=== PATIENT | male | born 1990 | race Caucasian/White ===

== ENCOUNTER 2019-11-09 13:18 | Inpatient (IN) | payer BC, OTHER ==
[2019-11-09 13:55] VITALS: BMI 30.4
--- NOTE | 2019-11-09 14:20 | PDOC ---
History of Present Illness - General Chief Complaint: Cold Symptoms Stated Complaint: FEVER Time Seen by Provider: 11/09/19 13:47 - History of Present Illness Initial Comments: 29 M with no PMH walked to the ED after a low blood cell count result from [facility] urgent care. He presented to an urgent care with 1 week of flu like s ymptoms chill, fever, sweating, low appetite and 2 months of weight loss over 40 lbs. At the urgent care, he was given Tylenol for fever which subsided. Per diagnostic, EKG was done and negative. Lab reveal pancytopenia of low WBC 4.40, Hb of 8.3 , normacytic anemia Hct 24, normal MCV 91, RBC 2.64 million. Because of this, he was recommended to go to the ED. He denies SOB, chest pain, stomach pain, N/V/D, vision change, bleeding. He denies exposure to COVID, TB, recent travel history to endemic region. ROS: unremarkble except mentioned above in the HPI PMH: none PSH: adenoid removal Med: none Fam hx: none Allergy: none SS: alcohol use, denies drugs and smoking. Sexually active with no condom use. Past History - Medical History Allergies/Adverse Reactions: Allergies Allergy/AdvReac Type Severity Reaction Status Date / Time No Known Allergies Allergy Verified 10/05/11 16:19 COPD: No - Psycho-Social/Smoking History Smoking Status: No Smoking History: Never smoked Number of Cigarettes Smoked Daily: 0 - Substance Abuse Hx (Audit-C & DAST Scrn) How often the patient has a drink containing alcohol: Monthly or less Number of drinks the patient has on a typical day: 1 or 2 How often the patient has six or more drinks on one occasion: Less than monthly Score: In Men: 4 or > Positive; In Women: 3 or > Positive: 2 Screen Result (Pos requires Nsg. Audit-10AR): Negative In the last yr the pt used illegal drug/Rx for NonMed reason: No Score: Yes response is considered Positive: 0 Screen Result (Positive result requires Nsg. DAST-10): Negative *Physical Exam - Vital Signs Last Vital Signs Temp Pulse Resp BP Pulse Ox 100.3 F H 93 H 19 111/69 97 11/09/19 13:25 11/09/19 13:25 11/09/19 13:25 11/09/19 13:25 11/09/19 13:25 11/09/19 15:10 General appearrance: pale, nourished, laying comfortably on the chair. - Physical Exam HEENT: positive: EOMI, SHAD, Pale Conjunctivae, Other (no petechia on oral cavity) Neck: positive: Trachea midline, Supple Respiratory/Chest: positive: Lungs Clear, Normal Breath Sounds Cardiovascular: positive: Regular Rhythm, Regular Rate, S1, S2 Gastrointestinal/Abdominal: positive: Normal Bowel Sounds, Soft Extremity: positive: Normal Capillary Refill, Normal Range of Motion Integumentary: positive: Warm, Other (pale ) Neurologic: positive: merchandise coordinator II-XII NML intact, Fully Oriented ED Treatment Course - LABORATORY CBC & Chemistry Diagram: 11/09/19 15:00 11/09/19 15:00 Medical Decision Making - Medical Decision Making 11/09/19 15:47 29 M presented to the ED with abnormal lab from an urgent care. CBC, CMP were dr umanzor, revealed pancytopenia. WBC 4, plt 23. Peripheral blood smear is pending. Chest Xray result came back negative, no sign of pneumonia, or cavity lesion. Hem/onc was consulted. Dr. Teri Acosta. She recommended that Mr. Hoff to be admitted. She wanted to add on PT/PTT, fibrinogen to rule out DIC, Septic workup , HIV test. 11/09/19 17:01 11/09/19 18:56 Peripheral blood smear came back with blast cells, awaiting for confirmed read from a pathologist. Patient was admitted to Dr. Rashi Jaramillo. Discharge - Discharge Information Problems reviewed: Yes Clinical Impression/Diagnosis: Thrombocytopenia Anemia Qualifiers: Anemia type: unspecified type Qualified Code(s): D64.9 - Anemia, unspecified Leukopenia Qualifiers: Leukopenia type: unspecified Qualified Code(s): D72.819 - Decreased white blood cell count, unspecified Condition: Guarded - Admission Yes - Follow up/Referral - Patient Discharge Instructions - Post Discharge Activity
[2019-11-09 15:30] LABS: BASO % 0.4 % (0-2.0); EOS % 0.3 % (0-4.5); HEMATOCRIT 23.9 % (35.4-49); HEMOGLOBIN 7.8 GM/dL (11.7-16.9); LYMPH % 50.5 % (8-40); MCH 30.7 pg (25.7-33.7); MCHC 32.6 g/dl (32.0-35.9); MEAN CELL VOLUME 94.2 fl (80-96); MEAN PLT VOLUME 8.6 fl (7.5-11.1); MONO % 17.2 % (3.8-10.2); NEUT % 31.6 % (42.8-82.8); RBC 2.54 M/mm3 (4.00-5.60); RDW 17.4 % (11.9-15.9)
[2019-11-09 15:32] LABS: PLATELET COUNT 23 K/MM3 (134-434)
[2019-11-09 15:57] LABS: ALBUMIN 3.6 g/dl (3.4-5.0); BLOOD UREA NITROGEN 22.4 mg/dL (7-18); CALCIUM 8.6 mg/dL (8.5-10.1); CREATININE 1.3 mg/dL (0.55-1.3); TOT PROT 6.4 g/dl (6.4-8.2)
--- NOTE | 2019-11-09 16:06 | PDOC ---
Documentation entered by Lia Hall SCRIBE, acting as scribe for Lachelle Luong MD. Lachelel Luong MD: This documentation has been prepared by the Isabel hahn Xhesika, SCRIBE, under my direction and personally reviewed by me in its entirety. I confirm that the documentation accurately reflects all work, treatment, procedures, and medical decision making performed by me. Attending Attestation - Resident Resident Name: Josh Montano - ED Attending Attestation I have performed the following: I have examined & evaluated the patient, The case was reviewed & discussed with the resident, I agree w/resident's findings & plan, Exceptions are as noted - HPI HPI: 11/09/19 14:22 The patient is a 29 y/o M with no PMH who presents to the ED BIBA for 1 week of fever, chills, night sweats, lightheadedness, and decreased appetite. Pt states he was seen at Urgent Care this morning, had a EKG and lab work done which showed low WBC and platelets and was advised to come to the ED for further evaluation. Pt states he has endorsed a 16 pound weight loss over the past month. Pt denies any COVID exposures. The patient denies chest pain, shortness of breath. Denies cough, nausea, vomiting, diarrhea and constipation. Denies dysuria, frequency, urgency and hematuria. Allergies: NKDA - Physicial Exam PE: GENERAL: Awake, alert, and fully oriented, in no acute distress. Appears pale HEAD: No signs of trauma EYES: PERRLA, EOMI, sclera anicteric, conjunctiva pale ENT: Auricles normal inspection, hearing grossly normal, nares patent, oropharynx clear without exudates. Moist mucosa NECK: Normal ROM, supple, no lymphadenopathy, JVD, or masses LUNGS: Breath sounds equal, clear to auscultation bilaterally. No wheezes, and no crackles HEART: Regular rate and rhythm, normal S1 and S2, no murmurs, rubs or gallops ABDOMEN: Soft, nontender, normoactive bowel sounds. No guarding, no rebound. No masses EXTREMITIES: Normal range of motion, no edema. No clubbing or cyanosis. No cords, erythema, or tenderness. No palpable axillary nodes NEUROLOGICAL: Cranial nerves II through XII grossly intact. Normal speech, normal gait. Motor and sensation intact SKIN: Warm, diaphoretic, normal turgor, no rashes or lesions noted. - Medical Decision Making 11/09/19 16:03 Pt with anemia, leukopenia, and thrombocytopenia. Concerning for bone marrow suppression- poss malignancy vs aplastic anemia? Unclear at this time. No palpable lymph nodes on exam, no masses. Will contact heme/onc for guidance. Likely admission. Discharge - Discharge Information Problems reviewed: Yes - Discharge Information Clinical Impression/Diagnosis: Thrombocytopenia Anemia Qualifiers: Anemia type: unspecified type Qualified Code(s): D64.9 - Anemia, unspecified Leukopenia Qualifiers: Leukopenia type: unspecified Qualified Code(s): D72.819 - Decreased white blood cell count, unspecified
[2019-11-09 17:02] LABS: ANISOCYTOSIS 2+; MACROCYTOSIS 2+; PLATELET ESTIMATE DECREASED
--- NOTE | 2019-11-09 19:46 | PN ---
Teaching Attending Note Name of Resident: Gely Ramirez ATTENDING PHYSICIAN STATEMENT I saw and evaluated the patient. I reviewed the resident's note and discussed the case with the resident. I agree with the resident's findings and plan as documented. SUBJECTIVE: Patient is a 29 year old with no reported PMH walked to the ER after a low blood cell count result from [facility]. He presented to an Urgent care with 1 week of flu-like symptoms of chills, fever, sweating, low appetite and 2 months of unintended weight loss of over 40 lbs. At the urgent care, he was given Tylenol for fever which subsided. EKG was done and it was negative. Tests showed pancytopenia - WBC 4.40, Hb of 8.3, normocytic anemia Hct 24, normal MCV 91, RBC 2.64 million. Because of this, he was referred to the ER. He denies SOB, chest pain, abdominal pain, nausea, vomiting, diarrhea, vision change, dysuria, hematuria, rectal bleeding or melena. Denies alcohol, tobacco or illicit drug use. No sick contacts or recent travels. Patient has family history is DM. OBJECTIVE: Alert Vital Signs Period Temp Pulse Resp BP Sys/Price Pulse Ox Last 24 Hr 99 F-100.3 F 93 19 111/69 97 HEENT: No Jaundice, eye redness or discharge, PERRLA, EOMI. Normocephalic, atraumatic. External ears are normal and hearing is grossly intact. No nasal dis charge. Neck: Supple, nontender. No palpable adenopathy or thyromegaly. No JVD Chest: Good effort. Clear to auscultation and percussion. Heart: Regular. No S3, rub or murmur Abdomen: Not distended, soft, nontender and no HSM. No rebound or guarding. Normal bowel sounds. Ext: Peripheral pulses intact. No leg edema. Skin: Warm and dry. No petechiae, rash or ecchymosis. Neuro: Alert. Oriented x3. CN 2-12 grossly intact. Sensation grossly intact in all four extremities and DTR are symmetric. Psych: Appropriate mood and affect. Good insight. Abnormal Lab Results 11/09/19 11/09/19 11/09/19 15:00 15:00 18:30 RBC 2.54 L Hgb 7.8 L Hct 23.9 L RDW 17.4 H Plt Count 23 L* Absolute Neuts (auto) 1.3 L Neutrophils % 31.6 L Neutrophils % (Manual) 40.0 L Lymphocytes % 50.5 H Monocytes % 17.2 H Monocytes % (Manual) 16 H Blast Cells % (Manual) 1 H Nucleated RBC % 6 H Retic Count 3.11 H BUN 22.4 H Unsaturated IBC 182 L Ferritin 943.1 H AST 64 H ALT 62 H Current Medications Generic Name Dose Route Start Last Admin Trade Name Freq PRN Reason Stop Dose Admin Acetaminophen 650 mg 11/09/19 22:18 Tylenol - PO Q6H PRN Fever Or Pain ASSESSMENT AND PLAN: 1. Pancytopenia - Etiology unclear. Low corrected reticulocyte count suggests bone marrow suppression. Sepsis workup being done. Already seen by the Musculoskeletal Physician and her care plan is being implemented. No acute abnormality on CXR. Urinalysis pending. Will get HIV test and CT scan of abdomen/pelvis. Viral testing for COVID-19 ordered and patient placed on airborne, droplet and contact isolation. EKG shows NSR at 83/minute and QTc [address]-T wave changes. Will hydrate gently with IV NS and use Tylenol for pain/fever control. No indication for antibiotics at this time. 2. Obesity Counseled on the risks associated with obesity. Will provide mary ent all the necessary assistance, counseling and positive reinforcement to facilitate weight loss. Consult archeologist. 3. DVT prophylaxis - Lovenox 40 mg SQ q 24 hours. 4. Advance directives - Full code
--- NOTE | 2019-11-09 19:50 | CON.HO ---
Consult - text type - Consultation Consultation Note: 29 M with no PMH walked to the ED after a low blood cell count result from [facility] urgent care. He presents with 2 weeks of flu like symptoms fatigue, sweating, low appetite and 2 months of weight loss over 40 lbs. Noted fever this am only He denies SOB, chest pain, stomach pain, N/V/D, vision change, bleeding. He denies exposure to COVID, TB, recent travel history to endemic region. PMH: none PSH: adenoid removal Med: none Fam hx: none Allergy: none SS: alcohol use, denies drugs and smoking. Past History - Medical History Allergies/Adverse Reactions: Allergies Allergy/AdvReac Type Severity Reaction Status Date / Time No Known Allergies Allergy Verified 10/05/11 16:19 *Physical Exam - Vital Signs Last Vital Signs Temp Pulse Resp BP Pulse Ox 100.3 F H 93 H 19 111/69 97 11/09/19 13:25 11/09/19 13:25 11/09/19 13:25 11/09/19 13:25 11/09/19 13:25 11/09/19 15:10 General appearrance: pale, nourished, laying comfortably on the chair. P/E Cor: RSR, No murmurs, No gallops Lungs: Clear to P&A Abd: Soft, Normal bowel sounds, No organomegaly Ext:No significant edema A/P 29 M with no PMH walked to the ED after a low blood cell count result from [facility] urgent care. He presents with 2 weeks of flu like symptoms fatigue, sweating, low appetite and 2 months of weight loss over 40 lbs. Noted fever this am only He denies SOB, chest pain, stomach pain, N/V/D, vision change, bleeding. He denies exposure to COVID, TB, recent travel history to endemic region. Peripheral smear ---increased lymphocytes, atypical ? blasts 5%, decreased neutrophils R/O Acute leukemia R/o viral illness/sepsis Will need peripheral blood flowcytometry to r/o acute leukemia check PT/PTT/fibrinogen/LDH/uric acid/COVID and HIV serology IV hydration Transfuse monodonor platelets if bleeding or < 10-20,000 Transfuse PRBCs for Hgb <7 check cultures/CXR will follow closely
--- NOTE | 2019-11-09 20:45 | HP ---
CHIEF COMPLAINT:Lightheadedness and chills for 3 days PCP: unknown HISTORY OF PRESENT ILLNESS: Patient started feeling lightheaded and having chills on 2 days ago. Today he felt worse so he went to urgent care. Urgent care told him he had a fever and did blood work. Blood work showed low platelets so they advised him to come to the hospital. Upon further questioning, patient has been feeling more tired over the last 2 weeks. He has also been experiences night sweats in which he describes completely soaking the bed. He said his appetite has also been decreased and has had an unintentional weight loss of about 16 lbs over the last 8 weeks. ER course was notable for: (1)Fever (2)CXR (3)CBC, CMP Recent Travel: Denies PAST MEDICAL HISTORY: Denies PAST SURGICAL HISTORY: Denies Social History: Smoking:denies including vapping Alcohol:occasional 1-2 beers a day Drugs: denies Allergies No Known Allergies Allergy (Verified 10/05/11 16:19) HOME MEDICATIONS: Denies REVIEW OF SYSTEMS CONSTITUTIONAL: POSITIVE FOR: fever, chills, diaphoresis, malaise, loss of appetite, weight change, and night sweats HEENT: Absent: rhinorrhea, nasal congestion, throat pain, throat swelling, difficulty swallowing, mouth swelling, ear pain, eye pain, visual changes CARDIOVASCULAR: Absent: chest pain, syncope, palpitations, irregular heart rate, lightheadedness, peripheral edema RESPIRATORY: Absent: cough, shortness of breath, dyspnea with exertion, orthopnea, wheezing, stridor, hemoptysis GASTROINTESTINAL: Absent: abdominal pain, abdominal distension, nausea, vomiting, diarrhea, constipation, melena, hematochezia GENITOURINARY: Absent: dysuria, frequency, urgency, hesitancy, hematuria, flank pain, genital pain MUSCULOSKELETAL: Absent: myalgia, arthralgia, joint swelling, back pain, neck pain SKIN: Absent: rash, itching, pallor HEMATOLOGIC/IMMUNOLOGIC: Absent: easy bleeding, easy bruising, lymphadenopathy, frequent infections ENDOCRINE: Absent: unexplained weight gain, unexplained weight loss, heat intolerance, cold intolerance NEUROLOGIC: Absent: headache, focal weakness or paresthesias, dizziness, unsteady gait, seizure, mental status changes, bladder or bowel incontinence PSYCHIATRIC: Absent: anxiety, depression, suicidal or homicidal ideation, hallucinations. PHYSICAL EXAMINATION Vital Signs - 24 hr 11/09/19 11/09/19 13:25 15:24 Temperature 100.3 F H 99 F Pulse Rate 93 H Respiratory 19 Rate Blood Pressure 111/69 O2 Sat by Pulse 97 Oximetry (%) GENERAL: Awake, alert, and fully oriented, in no acute distress. HEAD: Normal with no signs of trauma. EYES: Pupils equal, round and reactive to light, extraocular movements intact. Sclera clear, conjunctiva pale EARS, NOSE, THROAT: oropharynx clear without exudates. NECK: Normal range of motion, supple without lymphadenopathy, JVD, or masses. LUNGS: Breath sounds equal, clear to auscultation bilaterally. No wheezes, and no crackles. No accessory muscle use. HEART: Regular rate and rhythm, normal S1 and S2 without murmur, rub or gallop. ABDOMEN: Soft, nontender, not distended, normoactive bowel sounds, no guarding, no rebound, no masses. No hepatomegaly or splenomegaly. MUSCULOSKELETAL: Normal range of motion at all joints. No tenderness to palpation of limbs. UPPER EXTREMITIES: 2+ pulses, warm, well-perfused. No cyanosis. No clubbing. No peripheral edema. LOWER EXTREMITIES: 2+ pulses, warm, well-perfused. No calf tenderness. No peripheral edema. NEUROLOGICAL: Normal speech. Normal gait. PSYCHIATRIC: Cooperative. Good eye contact. Appropriate mood and affect. SKIN: no rashes or lesions noted, normal capillary refill, feet cold Laboratory Results - last 24 hr 11/09/19 11/09/19 11/09/19 15:00 15:00 18:30 WBC 4.0 RBC 2.54 L Hgb 7.8 L Hct 23.9 L MCV 94.2 MCH 30.7 MCHC 32.6 RDW 17.4 H Plt Count 23 L* MPV 8.6 Absolute Neuts (auto) 1.3 L Neutrophils % 31.6 L Neutrophils % (Manual) 40.0 L Band Neutrophils % 3.0 Lymphocytes % 50.5 H Lymphocytes % (Manual) 39.0 Monocytes % 17.2 H Monocytes % (Manual) 16 H Eosinophils % 0.3 Basophils % 0.4 Blast Cells % (Manual) 1 H Nucleated RBC % 6 H Hypochromia 2+ Platelet Estimate Decreased Polychromasia 1+ Anisocytosis 2+ Macrocytosis 2+ Retic Count 3.11 H Sodium 137 Potassium 4.0 Chloride 106 Carbon Dioxide 22 Anion Gap 10 BUN 22.4 H Creatinine 1.3 Est GFR (CKD-EPI)AfAm 84.86 Est GFR (CKD-EPI)NonAf 73.22 Random Glucose 98 Calcium 8.6 Iron 71 TIBC 253 Iron Saturation 28 Unsaturated IBC 182 L Ferritin 943.1 H Total Bilirubin 1.0 AST 64 H ALT 62 H Alkaline Phosphatase 98 Total Protein 6.4 Albumin 3.6 CXR: looks WNL, awaiting final reading CT abdomen pelvis w/o contrast: splenomegaly - pending final read ASSESSMENT/PLAN: Patient is a 29 year male with no significant PMHx who presented to ED with fever and chills. Was found to have pancytopenia. Is being admitted to medical floors for further evaluation of pancytopenia. Pancytopenia - bone marrow suppression suspected >>> corrected reticulocyte count inappropriately low (1.85) r/o infectious causes covid testing pending HIV testing LDH UA + cultures Blood cultures Mg + Phos CRP heme/onc recs: peripheral smear ferritin, TIBC, transferritin PT/PTT, fibrinogen - r/o DIC CATHIE, RA factor If platelets fall < 20 transfuse If hbg falls < 7 transfuse Uric acid elevated - start allopurinol for prevention of tumor lysis syndrome 1 dose of Cefepime given prophylactically Pathology form must be filled out when patient gets to floor: Blood flow cytometry, FISH cytogentics CT abdomen/pelvis w/o contrast - showed splenomegaly Tylenol for fevers Watching very closely for any acute changes in his condition as patient could potentially deteriorate quickly Prophylaxis holding due to low platelets FEN IVF NS 75 ml/hr Regular diet as tolerated Visit type - Emergency Visit Emergency Visit: Yes ED Registration Date: 11/09/19 Care time: The patient presented to the Emergency Department on the above date and was hospitalized for further evaluation of their emergent condition. - New Patient This patient is new to me today: Yes Date on this admission: 11/17/19 - Critical Care Critical Care patient: No ATTENDING PHYSICIAN STATEMENT I saw and evaluated the patient. I reviewed the resident's note and discussed the case with the resident. I agree with the resident's findings and plan as documented. SUBJECTIVE: OBJECTIVE: ASSESSMENT AND PLAN:
[2019-11-09 21:07] LABS: BASO % 0.3 % (0-2.0); EOS % 0.2 % (0-4.5); HEMATOCRIT 25.3 % (35.4-49); HEMOGLOBIN 8.3 GM/dL (11.7-16.9); LYMPH % 55.5 % (8-40); MCH 31.2 pg (25.7-33.7); MCHC 32.8 g/dl (32.0-35.9); MEAN CELL VOLUME 95.1 fl (80-96); MEAN PLT VOLUME 7.8 fl (7.5-11.1); MONO % 23.2 % (3.8-10.2); NEUT % 20.8 % (42.8-82.8); PLATELET COUNT 39 K/MM3 (134-434); RBC 2.66 M/mm3 (4.00-5.60); RDW 17.4 % (11.9-15.9); WHITE BLOOD COUNT 7.3 K/mm3 (4.0-10.0)
[2019-11-09 21:59] LABS: ANISOCYTOSIS 2+; MACROCYTOSIS 2+; PLATELET ESTIMATE DECREASED
[2019-11-09] MEDS ORDERED: ACETAMINOPHEN 325 MG TABLET (FP) PO PRN (22:18)
[2019-11-10] MEDS: SODIUM CHLORIDE 1,000 ML IV SCH ×2 (00:50→03:27)
[2019-11-10] MEDS ORDERED: CEFEPIME 2 GM in DEXTROSE 5%-WATER - 50 ML IVPB ONE (01:30)
[2019-11-10] MEDS ORDERED: CEFEPIME 2 GM/100 ML BAG IVPB ONE (01:44)
[2019-11-10 03:38] LABS: URIC ACID 8.7 mg/dL (2.6-7.2)
[2019-11-10] MEDS ORDERED: ALLOPURINOL 100 MG TABLET (FP) PO SCH ×2 (03:59→10:00)
--- NOTE | 2019-11-10 04:08 | HP ---
CHIEF COMPLAINT: PCP: HISTORY OF PRESENT ILLNESS: 29 yo M no significant PMH presents to ED from urgent care for "critical blood counts". Pt states that for the past few weeks he has been feeling fatigued, chills, and has been having night sweats. pt denies any recent travel. 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 denies any rashes or recent illness ER course was notable for: (1)pancytopenia (2)heme/ onc consult with Dr. Williamson (3) Recent Travel: denies PAST MEDICAL HISTORY: denies PAST SURGICAL HISTORY:denies Social History: Smoking:denies Alcohol:social Drugs: denies Allergies No Known Allergies Allergy (Verified 10/05/11 16:19) HOME MEDICATIONS:none PHYSICAL EXAMINATION Vital Signs - 24 hr 11/09/19 11/09/19 11/09/19 13:25 15:24 21:31 Temperature 100.3 F H 99 F 98.6 F Pulse Rate 93 H Pulse Rate [ 98 H Left Radial] Respiratory 19 19 Rate Blood Pressure 111/69 Blood Pressure 110/68 [Right Arm] O2 Sat by Pulse 97 99 Oximetry (%) GENERAL: Awake, alert, and fully oriented, in no acute distress. HEAD: Normal with no signs of trauma. LUNGS: Breath sounds equal, clear to auscultation bilaterally. No wheezes, and no crackles. No accessory muscle use. HEART: Regular rate and rhythm, normal S1 and S2 without murmur, rub or gallop. ABDOMEN: Soft, nontender, not distended, normoactive bowel sounds, no guarding, no rebound MUSCULOSKELETAL:No CVA tenderness. UPPER EXTREMITIES: 2+ pulses, warm, well-perfused. No cyanosis. No clubbing. No peripheral edema. LOWER EXTREMITIES: 2+ pulses, warm, well-perfused. No calf tenderness. No peripheral edema. NEUROLOGICAL: Cranial nerves II-XII intact. Normal speech SKIN: Warm, dry, normal turgor, no rashes or lesions noted, normal capillary refill. Laboratory Last Values WBC 7.3 K/mm3 (4.0-10.0) 11/09/19 20:35 RBC 2.66 M/mm3 (4.00-5.60) L 11/09/19 20:35 Hgb 8.3 GM/dL (11.7-16.9) L 11/09/19 20:35 Hct 25.3 % (35.4-49) L 11/09/19 20:35 MCV 95.1 fl (80-96) 11/09/19 20:35 MCH 31.2 pg (25.7-33.7) 11/09/19 20:35 MCHC 32.8 g/dl (32.0-35.9) 11/09/19 20:35 RDW 17.4 % (11.9-15.9) H 11/09/19 20:35 Plt Count 39 K/MM3 (134-434) L D 11/09/19 20:35 MPV 7.8 fl (7.5-11.1) 11/09/19 20:35 Absolute Neuts (auto) 1.5 K/mm3 (1.5-8.0) 11/09/19 20:35 Neutrophils % 20.8 % (42.8-82.8) L D 11/09/19 20:35 Neutrophils % (Manual) 14.0 % (42.8-82.8) L D 11/09/19 20:35 Band Neutrophils % 2.0 % 11/09/19 20:35 Lymphocytes % 55.5 % (8-40) H 11/09/19 20:35 Lymphocytes % (Manual) 56.0 % (8-40) H D 11/09/19 20:35 Monocytes % 23.2 % (3.8-10.2) H 11/09/19 20:35 Monocytes % (Manual) 23 % (3.8-10.2) H 11/09/19 20:35 Eosinophils % 0.2 % (0-4.5) 11/09/19 20:35 Basophils % 0.3 % (0-2.0) 11/09/19 20:35 Blast Cells % (Manual) 5 % (0-0) H D 11/09/19 20:35 Nucleated RBC % 3 % (0-0) H 11/09/19 20:35 Hypochromia 2+ 11/09/19 20:35 Platelet Estimate Decreased 11/09/19 20:35 Polychromasia 1+ 11/09/19 20:35 Anisocytosis 2+ 11/09/19 20:35 Macrocytosis 2+ 11/09/19 20:35 Retic Count 3.11 % (0.5-1.5) H 11/09/19 18:30 PT with INR 13.90 SEC (9.7-13.0) H 11/10/19 04:16 INR 1.18 (0.83-1.09) H 11/10/19 04:16 PTT (Actin FS) 26.4 SECONDS (25.2-36.5) 11/10/19 04:16 Fibrinogen 307.0 mg/dL (238-498) 11/10/19 04:16 Sodium 137 mmol/L (136-145) 11/09/19 15:00 Potassium 4.0 mmol/L (3.5-5.1) 11/09/19 15:00 Chloride 106 mmol/L (98-107) 11/09/19 15:00 Carbon Dioxide 22 mmol/L (21-32) 11/09/19 15:00 Anion Gap 10 MMOL/L (8-16) 11/09/19 15:00 BUN 22.4 mg/dL (7-18) H 11/09/19 15:00 Creatinine 1.3 mg/dL (0.55-1.3) 11/09/19 15:00 Est GFR (CKD-EPI)AfAm 84.86 11/09/19 15:00 Est GFR (CKD-EPI)NonAf 73.22 11/09/19 15:00 Random Glucose 98 mg/dL (74-106) 11/09/19 15:00 Uric Acid 8.7 mg/dL (2.6-7.2) H 11/09/19 20:35 Calcium 8.6 mg/dL (8.5-10.1) 11/09/19 15:00 Iron 87 ug/dL (50-175) 11/09/19 20:35 TIBC 268 ug/dL (250-450) 11/09/19 20:35 Iron Saturation 32 % (17.5-39) 11/09/19 20:35 Unsaturated IBC 181 ug/dL (200-275) L 11/09/19 20:35 Ferritin 943.1 ng/ml (8-388) H 11/09/19 15:00 Total Bilirubin 1.0 mg/dL (0.2-1) 11/09/19 15:00 AST 64 U/L (15-37) H 11/09/19 15:00 ALT 62 U/L (13-61) H 11/09/19 15:00 Alkaline Phosphatase 98 U/L (45-117) 11/09/19 15:00 LD Total 1247 U/L (87-246) H 11/09/19 15:00 C-Reactive Protein 7.9 MG/DL (0.00-0.3) H 11/09/19 20:35 Total Protein 6.4 g/dl (6.4-8.2) 11/09/19 15:00 Albumin 3.6 g/dl (3.4-5.0) 11/09/19 15:00 Vitamin B12 725 pg/ml (193-986) 11/09/19 15:00 Serum Folate 17 ng/mL (3.1-17.5) 11/09/19 15:00 Blood Type B POSITIVE 11/09/19 20:35 Antibody Screen Negative 11/09/19 20:35 Direct Antiglob Test Negative (NEGATIVE) 11/09/19 20:35 ASSESSMENT/PLAN: 29 yo M no PMH presented with night sweats, chills, wt loss, fever admitted for pancytopenia pancytopenia - continue to monitor ; rpt cbc with dif - no signs of acute bleed on physical exam . CT abdomen/pelvis to r/o orhter bleeding ( CT shows nonspecific splenomegaly ) - Dr. Williamson consulted. workup ordered - will prophylactically cover with cefepime -will check PT/PTT/fibrinogen/LDH/uric acid/COVID and HIV serology -IV hydration -Peripheral Flow Cytometry/FISH (can only be sent on Tuesday11/12/19). -Mild elevation in LFTs, will monitor. -ID consulted. -Transfuse monodonor platelets if bleeding or < 10-20,000 -Transfuse PRBCs for Hgb <7 Visit type - Emergency Visit Emergency Visit: Yes ED Registration Date: 11/09/19 Care time: The patient presented to the Emergency Department on the above date and was hospitalized for further evaluation of their emergent condition. - New Patient This patient is new to me today: Yes - Critical Care Critical Care patient: No ATTENDING PHYSICIAN STATEMENT I saw and evaluated the patient. I reviewed the resident's note and discussed the case with the resident. I agree with the resident's findings and plan as documented. SUBJECTIVE: OBJECTIVE: ASSESSMENT AND PLAN:
[2019-11-10 04:50] LABS: INR 1.18 (0.83-1.09); PROTHROMBIN TIME (PATIENT) 13.9 SEC (9.7-13.0)
[2019-11-10 04:53] LABS: ACTIVATED PTT 26.4 SECONDS (25.2-36.5)
[2019-11-10 06:00] LABS: PH,URINE 6.5 (5.0-8.0); URINE APPEARANCE Clear; URINE BILIRUBIN Negative (NEGATIVE); URINE COLOR Yellow; URINE GLUCOSE (UA) Negative (NEGATIVE); URINE KETONE Negative (NEGATIVE); URINE LEUK ESTERASE Negative (NEGATIVE); URINE NITRITE Negative (NEGATIVE); URINE PROTEIN Negative (NEGATIVE); URINE UROBILINOGEN >=8.0 E.U./dl mg/dL (0.2-1.0)
[2019-11-10 07:38] LABS: BASO % 0.4 % (0-2.0); EOS % 0.3 % (0-4.5); HEMATOCRIT 22.7 % (35.4-49); HEMOGLOBIN 7.4 GM/dL (11.7-16.9); LYMPH % 62.8 % (8-40); MCH 30.5 pg (25.7-33.7); MCHC 32.7 g/dl (32.0-35.9); MEAN CELL VOLUME 93.3 fl (80-96); MEAN PLT VOLUME 8.3 fl (7.5-11.1); MONO % 12.9 % (3.8-10.2); NEUT % 23.6 % (42.8-82.8); RBC 2.43 M/mm3 (4.00-5.60); RDW 17.6 % (11.9-15.9); WHITE BLOOD COUNT 4.6 K/mm3 (4.0-10.0)
[2019-11-10 07:43] LABS: INR 1.17 (0.83-1.09); PROTHROMBIN TIME (PATIENT) 13.8 SEC (9.7-13.0)
[2019-11-10 07:45] LABS: ACTIVATED PTT 27.7 SECONDS (25.2-36.5)
[2019-11-10 07:48] LABS: PLATELET COUNT 21 K/MM3 (134-434)
[2019-11-10 08:04] LABS: ALBUMIN 3.5 g/dl (3.4-5.0); BLOOD UREA NITROGEN 20.5 mg/dL (7-18); CALCIUM 8.5 mg/dL (8.5-10.1); CREATININE 1.3 mg/dL (0.55-1.3); MAGNESIUM 2.5 mg/dL (1.8-2.4); PHOSPHOROUS 4.4 mg/dL (2.5-4.9); POTASSIUM 4.1 mmol/L (3.5-5.1); URIC ACID 8.2 mg/dL (2.6-7.2)
[2019-11-10 08:14] LABS: TOT PROT 6.4 g/dl (6.4-8.2)
[2019-11-10] MEDS: CEFTRIAXONE 2 GM in DEXTROSE 5%-WATER - 50 ML IVPB SCH (09:23)
[2019-11-10] MEDS: ALLOPURINOL 300 MG TABLET (FP) PO SCH (09:23)
[2019-11-10] MEDS ORDERED: DOXYCYCLINE HYCLATE 100 MG VIAL ONE ×2 (09:35→21:47)
[2019-11-10] MEDS: DOXYCYCLINE INJECTION 100 MG in DEXTROSE 5%-WATER 100 ML IVPB SCH ×2 (09:43→21:56)
--- NOTE | 2019-11-10 11:36 | PN.HO ---
Progress Note (short form) - Note Progress Note: PAtient seen and examined Feels improved Last Vital Signs Temp Pulse Resp BP Pulse Ox 98.2 F 82 17 112/72 98 11/10/19 07:54 11/10/19 07:54 11/10/19 07:54 11/10/19 07:54 11/10/19 07:54 Cor: RSR, No murmurs, No gallops Lungs: Clear to P&A Abd: Soft, Normal bowel sounds, No organomegaly Ext:No significant edema Skin: No rashes, Integument intact Labs/Meds reviewed A/P 29 M with no PMH walked to the ED after a low blood cell count result from [facility] urgent care. He presents with 2 weeks of flu like symptoms fatigue, sweating, low appetite and 2 months of weight loss over 40 lbs. Noted fever this am only He denies SOB, chest pain, stomach pain, N/V/D, vision change, bleeding. He denies exposure to COVID, TB, recent travel history to endemic region. Peripheral smear ---increased lymphocytes, atypical ? blasts 5%, decreased neutrophils R/O Acute leukemia R/o viral illness/sepsis Peripheral smear, clinical picture suggestive of acute leukemia check peripheral blood flowcytometry PT/PTT/fibrinogen--nl LDH -1200s/uric acid 8.1 IV hydration start allopurinol Transfuse monodonor platelets if bleeding or < 10-20,000 Transfuse PRBCs for Hgb <7 check cultures/CXR Empiric antibiotics discussed with patient and his mother
[2019-11-10 12:59] LABS: ANISOCYTOSIS 1+; MACROCYTOSIS 0; OVALOCYTE 1+; PLATELET ESTIMATE DECREASED
--- NOTE | 2019-11-10 13:34 | PN ---
Teaching Attending Note Name of Resident: Gomez Atkinson ATTENDING PHYSICIAN STATEMENT I saw and evaluated the patient. I reviewed the resident's note and discussed the case with the resident. I agree with the resident's findings and plan as documented. SUBJECTIVE: Feeling well, no complaints. No further fevers. No cough/sputum/hemoptysis. No abdominal pain/dysuria/nausea/vomiting/diarrhea. No rash. No ecchymoses. OBJECTIVE: Tmax 100.3. Hemodynamically Stable. Last Vital Signs Temp Pulse Resp BP Pulse Ox 98.2 F 82 17 112/72 98 11/10/19 07:54 11/10/19 07:54 11/10/19 07:54 11/10/19 07:54 11/10/19 07:54 HEENT - Atraumatic, Normocephalic. Heart - S1, S2, RRR Lungs - clear to auscultation Abdomen - Soft, non-tender. Bowel Sounds normal. Extremities - no edema, no calf tenderness Neuro - AAO x 3. Tone/Power normal all extremities. Laboratory Results - last 24 hr 11/09/19 11/09/19 11/09/19 15:00 15:00 18:30 WBC 4.0 RBC 2.54 L Hgb 7.8 L Hct 23.9 L MCV 94.2 MCH 30.7 MCHC 32.6 RDW 17.4 H Plt Count 23 L* MPV 8.6 Absolute Neuts (auto) 1.3 L Neutrophils % 31.6 L Neutrophils % (Manual) 40.0 L Band Neutrophils % 3.0 Lymphocytes % 50.5 H Lymphocytes % (Manual) 39.0 Monocytes % 17.2 H Monocytes % (Manual) 16 H Eosinophils % 0.3 Eosinophils % (Manual) Basophils % 0.4 Basophils % (Manual) Myelocytes % (Man) Promyelocytes % (Man) Blast Cells % (Manual) 1 H Nucleated RBC % 6 H Metamyelocytes Hypochromia 2+ Platelet Estimate Decreased Polychromasia 1+ Poikilocytosis Basophilic Stippling Anisocytosis 2+ Microcytosis Macrocytosis 2+ Spherocytes Ovalocytes Retic Count 3.11 H PT with INR INR PTT (Actin FS) Fibrinogen Sodium 137 Potassium 4.0 Chloride 106 Carbon Dioxide 22 Anion Gap 10 BUN 22.4 H Creatinine 1.3 Est GFR (CKD-EPI)AfAm 84.86 Est GFR (CKD-EPI)NonAf 73.22 Random Glucose 98 Uric Acid Calcium 8.6 Phosphorus Magnesium Iron 71 TIBC 253 Iron Saturation 28 Unsaturated IBC 182 L Ferritin 943.1 H Total Bilirubin 1.0 AST 64 H ALT 62 H Alkaline Phosphatase 98 LD Total 1247 H C-Reactive Protein Total Protein 6.4 Albumin 3.6 Vitamin B12 725 Serum Folate 17 TSH Free T4 Urine Color Urine Appearance Urine pH Ur Specific [place] Urine Protein Urine Glucose (UA) Urine Ketones Urine Blood Urine Nitrite Urine Bilirubin Urine Urobilinogen Ur Leukocyte Esterase Blood Type Antibody Screen Direct Antiglob Test 11/09/19 11/09/19 11/09/19 20:35 20:35 20:35 WBC 7.3 RBC 2.66 L Hgb 8.3 L Hct 25.3 L MCV 95.1 MCH 31.2 MCHC 32.8 RDW 17.4 H Plt Count 39 L D MPV 7.8 Absolute Neuts (auto) 1.5 Neutrophils % 20.8 L D Neutrophils % (Manual) 14.0 L D Band Neutrophils % 2.0 Lymphocytes % 55.5 H Lymphocytes % (Manual) 56.0 H D Monocytes % 23.2 H Monocytes % (Manual) 23 H Eosinophils % 0.2 Eosinophils % (Manual) Basophils % 0.3 Basophils % (Manual) Myelocytes % (Man) Promyelocytes % (Man) Blast Cells % (Manual) 5 H D Nucleated RBC % 3 H Metamyelocytes Hypochromia 2+ Platelet Estimate Decreased Polychromasia 1+ Poikilocytosis Basophilic Stippling Anisocytosis 2+ Microcytosis Macrocytosis 2+ Spherocytes Ovalocytes Retic Count PT with INR INR PTT (Actin FS) Fibrinogen Sodium Potassium Chloride Carbon Dioxide Anion Gap BUN Creatinine Est GFR (CKD-EPI)AfAm Est GFR (CKD-EPI)NonAf Random Glucose Uric Acid 8.7 H Calcium Phosphorus Magnesium Iron 87 TIBC 268 Iron Saturation 32 Unsaturated IBC 181 L Ferritin Total Bilirubin AST ALT Alkaline Phosphatase LD Total C-Reactive Protein 7.9 H Total Protein Albumin Vitamin B12 Serum Folate TSH Free T4 Urine Color Urine Appearance Urine pH Ur Specific [place] Urine Protein Urine Glucose (UA) Urine Ketones Urine Blood Urine Nitrite Urine Bilirubin Urine Urobilinogen Ur Leukocyte Esterase Blood Type Antibody Screen Direct Antiglob Test Negative 07/03/20 07/04/20 07/04/20 20:35 04:16 04:16 WBC RBC Hgb Hct MCV MCH MCHC RDW Plt Count MPV Absolute Neuts (auto) Neutrophils % Neutrophils % (Manual) Band Neutrophils % Lymphocytes % Lymphocytes % (Manual) Monocytes % Monocytes % (Manual) Eosinophils % Eosinophils % (Manual) Basophils % Basophils % (Manual) Myelocytes % (Man) Promyelocytes % (Man) Blast Cells % (Manual) Nucleated RBC % Metamyelocytes Hypochromia Platelet Estimate Polychromasia Poikilocytosis Basophilic Stippling Anisocytosis Microcytosis Macrocytosis Spherocytes Ovalocytes Retic Count PT with INR 13.90 H INR 1.18 H PTT (Actin FS) 26.4 Fibrinogen 307.0 Sodium Potassium Chloride Carbon Dioxide Anion Gap BUN Creatinine Est GFR (CKD-EPI)AfAm Est GFR (CKD-EPI)NonAf Random Glucose Uric Acid Calcium Phosphorus Magnesium Iron TIBC Iron Saturation Unsaturated IBC Ferritin Total Bilirubin AST ALT Alkaline Phosphatase LD Total C-Reactive Protein Total Protein Albumin Vitamin B12 Serum Folate TSH Free T4 Urine Color Urine Appearance Urine pH Ur Specific [place] Urine Protein Urine Glucose (UA) Urine Ketones Urine Blood Urine Nitrite Urine Bilirubin Urine Urobilinogen Ur Leukocyte Esterase Blood Type B POSITIVE Antibody Screen Negative Direct Antiglob Test 11/10/19 11/10/19 11/10/19 04:16 06:30 06:30 WBC RBC Hgb Hct MCV MCH MCHC RDW Plt Count MPV Absolute Neuts (auto) Neutrophils % Neutrophils % (Manual) Band Neutrophils % Lymphocytes % Lymphocytes % (Manual) Monocytes % Monocytes % (Manual) Eosinophils % Eosinophils % (Manual) Basophils % Basophils % (Manual) Myelocytes % (Man) Promyelocytes % (Man) Blast Cells % (Manual) Nucleated RBC % Metamyelocytes Hypochromia Platelet Estimate Polychromasia Poikilocytosis Basophilic Stippling Anisocytosis Microcytosis Macrocytosis Spherocytes Ovalocytes Retic Count PT with INR 13.80 H INR 1.17 H PTT (Actin FS) 27.7 Fibrinogen 323.0 Sodium Potassium Chloride Carbon Dioxide Anion Gap BUN Creatinine Est GFR (CKD-EPI)AfAm Est GFR (CKD-EPI)NonAf Random Glucose Uric Acid Calcium Phosphorus Magnesium Iron TIBC Iron Saturation Unsaturated IBC Ferritin Total Bilirubin AST ALT Alkaline Phosphatase LD Total C-Reactive Protein Total Protein Albumin Vitamin B12 Serum Folate TSH Free T4 Urine Color Yellow Urine Appearance Clear Urine pH 6.5 Ur Specific [place] 1.025 Urine Protein Negative Urine Glucose (UA) Negative Urine Ketones Negative Urine Blood Negative Urine Nitrite Negative Urine Bilirubin Negative Urine Urobilinogen >=8.0 e.u./dl Ur Leukocyte Esterase Negative Blood Type Antibody Screen Direct Antiglob Test 11/10/19 11/10/19 11/10/19 06:30 06:30 06:30 WBC 4.6 RBC 2.43 L Hgb 7.4 L Hct 22.7 L MCV 93.3 MCH 30.5 MCHC 32.7 RDW 17.6 H Plt Count 21 L* D MPV 8.3 Absolute Neuts (auto) 1.1 L Neutrophils % 23.6 L Neutrophils % (Manual) 19.0 L D Band Neutrophils % 5.0 Lymphocytes % 62.8 H Lymphocytes % (Manual) 58.0 H Monocytes % 12.9 H Monocytes % (Manual) 1 L D Eosinophils % 0.3 Eosinophils % (Manual) 0.0 Basophils % 0.4 Basophils % (Manual) 0.0 Myelocytes % (Man) 4 H Promyelocytes % (Man) 0 Blast Cells % (Manual) 0 D Nucleated RBC % 3 H Metamyelocytes 3 H Hypochromia 0 Platelet Estimate Decreased Polychromasia 1+ Poikilocytosis 1+ Basophilic Stippling 1+ Anisocytosis 1+ Microcytosis 1+ Macrocytosis 0 Spherocytes 1+ Ovalocytes 1+ Retic Count PT with INR INR PTT (Actin FS) Fibrinogen Sodium 139 Potassium 4.1 Chloride 105 Carbon Dioxide 25 Anion Gap 9 BUN 20.5 H Creatinine 1.3 Est GFR (CKD-EPI)AfAm 84.86 Est GFR (CKD-EPI)NonAf 73.22 Random Glucose 92 Uric Acid 8.2 H Calcium 8.5 Phosphorus 4.4 Magnesium 2.5 H Iron TIBC Iron Saturation Unsaturated IBC Ferritin Total Bilirubin 1.0 AST 46 H ALT 60 Alkaline Phosphatase 97 LD Total C-Reactive Protein Total Protein 6.4 Albumin 3.5 Vitamin B12 Serum Folate TSH 0.72 Free T4 0.92 Urine Color Urine Appearance Urine pH Ur Specific [place] Urine Protein Urine Glucose (UA) Urine Ketones Urine Blood Urine Nitrite Urine Bilirubin Urine Urobilinogen Ur Leukocyte Esterase Blood Type Antibody Screen Direct Antiglob Test Current Medications Generic Name Dose Route Start Last Admin Trade Name Freq PRN Reason Stop Dose Admin Acetaminophen 650 mg 11/09/19 22:18 Tylenol - PO Q6H PRN Fever Or Pain Allopurinol 300 mg 11/10/19 08:30 11/10/19 09:23 Zyloprim - PO 300 mg DAILY DORA Administration Sodium Chloride 1,000 mls @ 75 mls/hr 11/10/19 00:45 11/10/19 00:50 Normal Saline - IV 75 mls/hr ASDIR DORA Administration Sodium Chloride 1,000 mls @ 75 mls/hr 11/10/19 02:00 11/10/19 03:27 Normal Saline - IV Not Given ASDIR DORA Doxycycline Hyclate 100 mg/ 100 mls @ 100 mls/hr 11/10/19 10:00 11/10/19 09:43 Dextrose IVPB 100 mls/hr BID DORA Administration Ceftriaxone Sodium 2 gm/ 50 mls @ 100 mls/hr 11/10/19 10:00 11/10/19 09:23 Dextrose IVPB 100 mls/hr DAILY DORA Administration ASSESSMENT AND PLAN: 29 year old male with no significant PMH presents with 2 week history of increasing lethargy, night sweats, chills, weight loss, fevers, found to have Anemia and Thrombocytopenia. 1. Pancytopenia - Neutropenia/Anemia/Thrombocytopenia ?Infective etiology vs underlying malignancy CXR - no acute findings CT A/P - Splenomegaly LDH/Uric Acid elevated - Peripheral smear, Peripheral Flow Cytometry/FISH (can only be sent on Tuesday11/12/19). Allopurinol started for elevated Uric Acid. Mild elevation in LFTs, will monitor. Tick-Borne illness work-up sent despite negative history of tick exposure. HIV pending. May need further viral screen. ID consulted. Empiric Ceftriaxone/Doxycycline. If fever > 100.4 or if absolute Neutrophils drop below 1.0, consider change to Cefepime. Discussed with Dr. Williamson - she will advise re: need for transfer to [facility].
--- NOTE | 2019-11-10 15:55 | PN ---
Physical Exam: SUBJECTIVE: Patient seen and examined at bedside in ED. Resting in bed, no complaints. OBJECTIVE: Vital Signs Period Temp Pulse Resp BP Sys/Price Pulse Ox Last 24 Hr 98.2 F-98.8 F 82-98 14-19 108-121/68-81 98-99 GENERAL: NAD HEAD: AT/NC EYES: No conjunctival pallor. EOMI, Sclera Clear NECK: Trachea midline, full range of motion, supple. LUNGS: Clear HEART: RRR no MRG S1S2 ABDOMEN: Soft NDNT EXTREMITIES: 2+ pulses, warm, well-perfused, no edema. NEUROLOGICAL: Cranial nerves II through XII grossly intact. PSYCH: Normal mood, normal affect. SKIN: Warm, dry Laboratory Results - last 24 hr 11/09/19 11/09/19 11/09/19 15:00 15:00 18:30 WBC RBC Hgb Hct MCV MCH MCHC RDW Plt Count MPV Absolute Neuts (auto) Neutrophils % Neutrophils % (Manual) 40.0 L Band Neutrophils % 3.0 Lymphocytes % Lymphocytes % (Manual) 39.0 Monocytes % Monocytes % (Manual) 16 H Eosinophils % Eosinophils % (Manual) Basophils % Basophils % (Manual) Myelocytes % (Man) Promyelocytes % (Man) Blast Cells % (Manual) 1 H Nucleated RBC % 6 H Metamyelocytes Hypochromia 2+ Platelet Estimate Decreased Polychromasia 1+ Poikilocytosis Basophilic Stippling Anisocytosis 2+ Microcytosis Macrocytosis 2+ Spherocytes Ovalocytes Retic Count 3.11 H PT with INR INR PTT (Actin FS) Fibrinogen Sodium 137 Potassium 4.0 Chloride 106 Carbon Dioxide 22 Anion Gap 10 BUN 22.4 H Creatinine 1.3 Est GFR (CKD-EPI)AfAm 84.86 Est GFR (CKD-EPI)NonAf 73.22 Random Glucose 98 Uric Acid Calcium 8.6 Phosphorus Magnesium Iron 71 TIBC 253 Iron Saturation 28 Unsaturated IBC 182 L Ferritin 943.1 H Total Bilirubin 1.0 AST 64 H ALT 62 H Alkaline Phosphatase 98 LD Total 1247 H C-Reactive Protein Total Protein 6.4 Albumin 3.6 Vitamin B12 725 Serum Folate 17 TSH Free T4 Urine Color Urine Appearance Urine pH Ur Specific [place] Urine Protein Urine Glucose (UA) Urine Ketones Urine Blood Urine Nitrite Urine Bilirubin Urine Urobilinogen Ur Leukocyte Esterase Blood Type Antibody Screen Direct Antiglob Test 11/09/19 11/09/19 11/09/19 20:35 20:35 20:35 WBC 7.3 RBC 2.66 L Hgb 8.3 L Hct 25.3 L MCV 95.1 MCH 31.2 MCHC 32.8 RDW 17.4 H Plt Count 39 L D MPV 7.8 Absolute Neuts (auto) 1.5 Neutrophils % 20.8 L D Neutrophils % (Manual) 14.0 L D Band Neutrophils % 2.0 Lymphocytes % 55.5 H Lymphocytes % (Manual) 56.0 H D Monocytes % 23.2 H Monocytes % (Manual) 23 H Eosinophils % 0.2 Eosinophils % (Manual) Basophils % 0.3 Basophils % (Manual) Myelocytes % (Man) Promyelocytes % (Man) Blast Cells % (Manual) 5 H D Nucleated RBC % 3 H Metamyelocytes Hypochromia 2+ Platelet Estimate Decreased Polychromasia 1+ Poikilocytosis Basophilic Stippling Anisocytosis 2+ Microcytosis Macrocytosis 2+ Spherocytes Ovalocytes Retic Count PT with INR INR PTT (Actin FS) Fibrinogen Sodium Potassium Chloride Carbon Dioxide Anion Gap BUN Creatinine Est GFR (CKD-EPI)AfAm Est GFR (CKD-EPI)NonAf Random Glucose Uric Acid 8.7 H Calcium Phosphorus Magnesium Iron 87 TIBC 268 Iron Saturation 32 Unsaturated IBC 181 L Ferritin Total Bilirubin AST ALT Alkaline Phosphatase LD Total C-Reactive Protein 7.9 H Total Protein Albumin Vitamin B12 Serum Folate TSH Free T4 Urine Color Urine Appearance Urine pH Ur Specific [place] Urine Protein Urine Glucose (UA) Urine Ketones Urine Blood Urine Nitrite Urine Bilirubin Urine Urobilinogen Ur Leukocyte Esterase Blood Type Antibody Screen Direct Antiglob Test Negative 11/09/19 11/10/19 11/10/19 20:35 04:16 04:16 WBC RBC Hgb Hct MCV MCH MCHC RDW Plt Count MPV Absolute Neuts (auto) Neutrophils % Neutrophils % (Manual) Band Neutrophils % Lymphocytes % Lymphocytes % (Manual) Monocytes % Monocytes % (Manual) Eosinophils % Eosinophils % (Manual) Basophils % Basophils % (Manual) Myelocytes % (Man) Promyelocytes % (Man) Blast Cells % (Manual) Nucleated RBC % Metamyelocytes Hypochromia Platelet Estimate Polychromasia Poikilocytosis Basophilic Stippling Anisocytosis Microcytosis Macrocytosis Spherocytes Ovalocytes Retic Count PT with INR 13.90 H INR 1.18 H PTT (Actin FS) 26.4 Fibrinogen 307.0 Sodium Potassium Chloride Carbon Dioxide Anion Gap BUN Creatinine Est GFR (CKD-EPI)AfAm Est GFR (CKD-EPI)NonAf Random Glucose Uric Acid Calcium Phosphorus Magnesium Iron TIBC Iron Saturation Unsaturated IBC Ferritin Total Bilirubin AST ALT Alkaline Phosphatase LD Total C-Reactive Protein Total Protein Albumin Vitamin B12 Serum Folate TSH Free T4 Urine Color Urine Appearance Urine pH Ur Specific [place] Urine Protein Urine Glucose (UA) Urine Ketones Urine Blood Urine Nitrite Urine Bilirubin Urine Urobilinogen Ur Leukocyte Esterase Blood Type B POSITIVE Antibody Screen Negative Direct Antiglob Test 11/10/19 11/10/19 11/10/19 04:16 06:30 06:30 WBC RBC Hgb Hct MCV MCH MCHC RDW Plt Count MPV Absolute Neuts (auto) Neutrophils % Neutrophils % (Manual) Band Neutrophils % Lymphocytes % Lymphocytes % (Manual) Monocytes % Monocytes % (Manual) Eosinophils % Eosinophils % (Manual) Basophils % Basophils % (Manual) Myelocytes % (Man) Promyelocytes % (Man) Blast Cells % (Manual) Nucleated RBC % Metamyelocytes Hypochromia Platelet Estimate Polychromasia Poikilocytosis Basophilic Stippling Anisocytosis Microcytosis Macrocytosis Spherocytes Ovalocytes Retic Count PT with INR 13.80 H INR 1.17 H PTT (Actin FS) 27.7 Fibrinogen 323.0 Sodium Potassium Chloride Carbon Dioxide Anion Gap BUN Creatinine Est GFR (CKD-EPI)AfAm Est GFR (CKD-EPI)NonAf Random Glucose Uric Acid Calcium Phosphorus Magnesium Iron TIBC Iron Saturation Unsaturated IBC Ferritin Total Bilirubin AST ALT Alkaline Phosphatase LD Total C-Reactive Protein Total Protein Albumin Vitamin B12 Serum Folate TSH Free T4 Urine Color Yellow Urine Appearance Clear Urine pH 6.5 Ur Specific [place] 1.025 Urine Protein Negative Urine Glucose (UA) Negative Urine Ketones Negative Urine Blood Negative Urine Nitrite Negative Urine Bilirubin Negative Urine Urobilinogen >=8.0 e.u./dl Ur Leukocyte Esterase Negative Blood Type Antibody Screen Direct Antiglob Test 11/10/19 11/10/19 11/10/19 06:30 06:30 06:30 WBC 4.6 RBC 2.43 L Hgb 7.4 L Hct 22.7 L MCV 93.3 MCH 30.5 MCHC 32.7 RDW 17.6 H Plt Count 21 L* D MPV 8.3 Absolute Neuts (auto) 1.1 L Neutrophils % 23.6 L Neutrophils % (Manual) 19.0 L D Band Neutrophils % 5.0 Lymphocytes % 62.8 H Lymphocytes % (Manual) 58.0 H Monocytes % 12.9 H Monocytes % (Manual) 1 L D Eosinophils % 0.3 Eosinophils % (Manual) 0.0 Basophils % 0.4 Basophils % (Manual) 0.0 Myelocytes % (Man) 4 H Promyelocytes % (Man) 0 Blast Cells % (Manual) 0 D Nucleated RBC % 3 H Metamyelocytes 3 H Hypochromia 0 Platelet Estimate Decreased Polychromasia 1+ Poikilocytosis 1+ Basophilic Stippling 1+ Anisocytosis 1+ Microcytosis 1+ Macrocytosis 0 Spherocytes 1+ Ovalocytes 1+ Retic Count PT with INR INR PTT (Actin FS) Fibrinogen Sodium 139 Potassium 4.1 Chloride 105 Carbon Dioxide 25 Anion Gap 9 BUN 20.5 H Creatinine 1.3 Est GFR (CKD-EPI)AfAm 84.86 Est GFR (CKD-EPI)NonAf 73.22 Random Glucose 92 Uric Acid 8.2 H Calcium 8.5 Phosphorus 4.4 Magnesium 2.5 H Iron TIBC Iron Saturation Unsaturated IBC Ferritin Total Bilirubin 1.0 AST 46 H ALT 60 Alkaline Phosphatase 97 LD Total C-Reactive Protein Total Protein 6.4 Albumin 3.5 Vitamin B12 Serum Folate TSH 0.72 Free T4 0.92 Urine Color Urine Appearance Urine pH Ur Specific [place] Urine Protein Urine Glucose (UA) Urine Ketones Urine Blood Urine Nitrite Urine Bilirubin Urine Urobilinogen Ur Leukocyte Esterase Blood Type Antibody Screen Direct Antiglob Test Active Medications Generic Name Dose Route Start Last Admin Trade Name Mauricioq PRN Reason Stop Dose Admin Acetaminophen 650 mg 11/09/19 22:18 Tylenol - PO Q6H PRN Fever Or Pain Allopurinol 300 mg 11/10/19 08:30 11/10/19 09:23 Zyloprim - PO 300 mg DAILY DORA Administration Sodium Chloride 1,000 mls @ 75 mls/hr 11/10/19 00:45 11/10/19 00:50 Normal Saline - IV 75 mls/hr ASDIR DORA Administration Sodium Chloride 1,000 mls @ 75 mls/hr 11/10/19 02:00 11/10/19 03:27 Normal Saline - IV Not Given ASDIR DORA Doxycycline Hyclate 100 mg/ 100 mls @ 100 mls/hr 11/10/19 10:00 11/10/19 09:43 Dextrose IVPB 100 mls/hr BID DORA Administration Ceftriaxone Sodium 2 gm/ 50 mls @ 100 mls/hr 11/10/19 10:00 11/10/19 09:23 Dextrose IVPB 100 mls/hr DAILY DORA Administration ASSESSMENT/PLAN: 29 year old male with no significant PMH presents with 2 week history of increasing lethargy, night sweats, chills, weight loss, fevers, found to have Anemia and Thrombocytopenia. # Pancytopenia - Neutropenia/Anemia/Thrombocytopenia -Rule out Acute leukemia VS Viral illness/Sepsis -CXR - no acute findings -CT A/P - Splenomegaly -LDH/Uric Acid elevated - Peripheral smear----> increased lymphocytes, atypical ? blasts 5%, decreased neutrophils -Peripheral Flow Cytometry/FISH (can only be sent on Tuesday11/12/19). -Allopurinol started for elevated Uric Acid -Mild elevation in LFTs, will monitor. -Tick-Borne illness work-up sent despite negative history of tick exposure. -HIV pending. -ID consulted. -Transfuse monodonor platelets if bleeding or < 10-20,000 -Transfuse PRBCs for Hgb <7 -Empiric Ceftriaxone/Doxycycline. If fever > 100.4 or if absolute Neutrophils drop below 1.0, consider change to Cefepime. DVT Px - SCDs. Visit type - Emergency Visit Emergency Visit: Yes ED Registration Date: 11/09/19 Care time: The patient presented to the Emergency Department on the above date and was hospitalized for further evaluation of their emergent condition. - New Patient This patient is new to me today: No - Critical Care Critical Care patient: No ATTENDING PHYSICIAN STATEMENT I saw and evaluated the patient. I reviewed the resident's note and discussed the case with the resident. I agree with the resident's findings and plan as documented. SUBJECTIVE: OBJECTIVE: ASSESSMENT AND PLAN:
--- NOTE | 2019-11-10 21:38 | PN ---
Progress Note (short form) - Note Progress Note: ID CONSULT DICTATED HEMATOLOGY CONSULT APPRECIATED DISCUSSED WITH HOSPITALIST AWAIT SEROLOGIES EMPIRIC CEFTRIAXONE/DOXYCYCLINE
[2019-11-10] MEDS ORDERED: DEXTROSE 5%-WATER 100 ML IVPB ONE (21:47)
[2019-11-10 21:59] LABS: BASO % 0.5 % (0-2.0); EOS % 0.3 % (0-4.5); HEMATOCRIT 25.1 % (35.4-49); HEMOGLOBIN 8.3 GM/dL (11.7-16.9); LYMPH % 68.8 % (8-40); MCH 31.2 pg (25.7-33.7); MCHC 33.1 g/dl (32.0-35.9); MEAN CELL VOLUME 94.1 fl (80-96); MONO % 12.8 % (3.8-10.2); NEUT % 17.6 % (42.8-82.8); RBC 2.66 M/mm3 (4.00-5.60); RDW 17.7 % (11.9-15.9)
[2019-11-10 22:36] LABS: MEAN PLT VOLUME 8.2 fl (7.5-11.1)
[2019-11-10 22:37] LABS: PLATELET COUNT 28 K/MM3 (134-434)
[2019-11-10 22:41] LABS: WHITE BLOOD COUNT 7.4 K/mm3 (4.0-10.0)
[2019-11-11 07:06] LABS: IGA IMMUNOGLOBULIN 157 mg/dL (90-386); IGG QN IMMUNOGLOBULIN 893 mg/dL (603-1613); IGM QN SERUM 102 mg/dL (20-172)
[2019-11-11] MEDS ORDERED: DEXTROSE 5%-WATER 100 ML IVPB ONE ×3 (09:37→21:14)
[2019-11-11] MEDS ORDERED: DOXYCYCLINE HYCLATE 100 MG VIAL ONE ×2 (09:37→21:14)
[2019-11-11] MEDS ORDERED: DEXTROSE 5%-WATER - 50 ML IVPB ONE (09:38)
[2019-11-11] MEDS: DOXYCYCLINE INJECTION 100 MG in DEXTROSE 5%-WATER 100 ML IVPB SCH ×2 (09:40→21:20)
[2019-11-11] MEDS: SODIUM CHLORIDE 1,000 ML IV SCH ×4 (09:41→21:44)
[2019-11-11] MEDS: CEFTRIAXONE 2 GM in DEXTROSE 5%-WATER - 50 ML IVPB SCH (09:41)
[2019-11-11 09:43] LABS: INR 1.13 (0.83-1.09); PROTHROMBIN TIME (PATIENT) 13.3 SEC (9.7-13.0)
[2019-11-11 09:45] LABS: ACTIVATED PTT 28.3 SECONDS (25.2-36.5)
[2019-11-11 09:53] LABS: URIC ACID 6.7 mg/dL (2.6-7.2)
[2019-11-11] MEDS: ALLOPURINOL 300 MG TABLET (FP) PO SCH (10:43)
[2019-11-11 13:35] LABS: BASO % 0.6 % (0-2.0); EOS % 0.2 % (0-4.5); HEMATOCRIT 22.1 % (35.4-49); HEMOGLOBIN 7.3 GM/dL (11.7-16.9); LYMPH % 63.9 % (8-40); MCH 30.9 pg (25.7-33.7); MCHC 32.8 g/dl (32.0-35.9); MEAN CELL VOLUME 94.1 fl (80-96); MEAN PLT VOLUME 8.3 fl (7.5-11.1); MONO % 10.7 % (3.8-10.2); NEUT % 24.6 % (42.8-82.8); RBC 2.35 M/mm3 (4.00-5.60); RDW 17.7 % (11.9-15.9); WHITE BLOOD COUNT 3.5 K/mm3 (4.0-10.0)
[2019-11-11 13:54] LABS: PLATELET COUNT 23 K/MM3 (134-434)
[2019-11-11 13:58] LABS: ALBUMIN 3.3 g/dl (3.4-5.0); BILIRUBIN,TOTAL 0.3 mg/dL (0.2-1); BLOOD UREA NITROGEN 18.6 mg/dL (7-18); CALCIUM 8.3 mg/dL (8.5-10.1); CREATININE 1.3 mg/dL (0.55-1.3); MAGNESIUM 2.2 mg/dL (1.8-2.4); PHOSPHOROUS 3.9 mg/dL (2.5-4.9); TOT PROT 6.2 g/dl (6.4-8.2)
--- NOTE | 2019-11-11 14:31 | PN.HO ---
Progress Note (short form) - Note Progress Note: PAtient seen and examined Feels improved Last Vital Signs Temp Pulse Resp BP Pulse Ox 98.2 F 82 17 112/72 98 11/10/19 07:54 11/10/19 07:54 11/10/19 07:54 11/10/19 07:54 11/10/19 07:54 Last Vital Signs Temp Pulse Resp BP Pulse Ox 98.0 F 88 18 130/70 96 11/11/19 09:00 11/11/19 09:00 11/11/19 09:00 11/11/19 09:00 11/11/19 09:00 Cor: RSR, No murmurs, No gallops Lungs: Clear to P&A Abd: Soft, Normal bowel sounds, No organomegaly Ext:No significant edema Skin: No rashes, Integument intact Labs/Meds reviewed A/P 29 M with no PMH walked to the ED after a low blood cell count result from [facility] urgent care. He presents with 2 weeks of flu like symptoms fatigue, sweating, low appetite and 2 months of weight loss over 40 lbs. Noted fever this am only He denies SOB, chest pain, stomach pain, N/V/D, vision change, bleeding. He denies exposure to COVID, TB, recent travel history to endemic region. Peripheral smear ---increased lymphocytes, atypical ? blasts 5%, decreased neutrophils R/O Acute leukemia R/o viral illness/sepsis Peripheral smear, clinical picture suggestive of acute leukemia check peripheral blood flowcytometry PT/PTT/fibrinogen--nl LDH -1200s/uric acid 8.1 IV hydration allopurinol Transfuse monodonor platelets if bleeding or < 10-20,000 Transfuse PRBCs for Hgb <7 Empiric antibiotics for neutopenic fever f/u covid/hiv
--- NOTE | 2019-11-11 15:14 | PN ---
Progress Note (short form) - Note Progress Note: SUBJECTIVE: Feeling well, developed diarrhea overnight. No melena/hematochezia. No further fevers. No cough/sputum/hemoptysis. No abdominal pain/dysuria/nausea/vomiting/diarrhea. No rash. No ecchymoses. OBJECTIVE: Tmax 99.7. Hemodynamically Stable. Last Vital Signs Temp Pulse Resp BP Pulse Ox 98.8 F 85 18 111/75 96 11/11/19 14:41 11/11/19 14:41 11/11/19 14:41 11/11/19 14:41 11/11/19 09:00 Heart - S1, S2, RRR Lungs - clear to auscultation Abdomen - Soft, non-tender. Bowel Sounds normal. Extremities - no edema, no calf tenderness Neuro - AAO x 3. Tone/Power normal all extremities. Laboratory Results - last 24 hr 11/09/19 11/09/19 11/10/19 18:30 22:30 10:00 WBC RBC Hgb Hct MCV MCH MCHC RDW Plt Count MPV Absolute Neuts (auto) Neutrophils % Lymphocytes % Monocytes % Eosinophils % Basophils % Nucleated RBC % Platelet Comment Haptoglobin 12 L PT with INR INR PTT (Actin FS) Fibrinogen Sodium Potassium Chloride Carbon Dioxide Anion Gap BUN Creatinine Est GFR (CKD-EPI)AfAm Est GFR (CKD-EPI)NonAf Random Glucose Uric Acid Calcium Phosphorus Magnesium Transferrin 182 Total Bilirubin AST ALT Alkaline Phosphatase LD Total Total Protein Albumin IgG 893 IgA 157 IgM 102 HIV 1&2 Ag/Ab, 4th Gen Non reactive 11/10/19 11/11/19 11/11/19 21:45 09:15 09:15 WBC 7.4 RBC 2.66 L Hgb 8.3 L Hct 25.1 L MCV 94.1 MCH 31.2 MCHC 33.1 RDW 17.7 H Plt Count 28 L* D MPV 8.2 Absolute Neuts (auto) 1.3 L Neutrophils % 17.6 L D Lymphocytes % 68.8 H Monocytes % 12.8 H Eosinophils % 0.3 Basophils % 0.5 Nucleated RBC % 1 H Platelet Comment Haptoglobin PT with INR 13.30 H INR 1.13 H PTT (Actin FS) 28.3 Fibrinogen Sodium Potassium Chloride Carbon Dioxide Anion Gap BUN Creatinine Est GFR (CKD-EPI)AfAm Est GFR (CKD-EPI)NonAf Random Glucose Uric Acid 6.7 Calcium Phosphorus Magnesium Transferrin Total Bilirubin AST ALT Alkaline Phosphatase LD Total 964 H Total Protein Albumin IgG IgA IgM HIV 1&2 Ag/Ab, 4th Gen 11/11/19 11/11/19 11/11/19 09:15 13:02 13:02 WBC 3.5 L RBC 2.35 L Hgb 7.3 L Hct 22.1 L MCV 94.1 MCH 30.9 MCHC 32.8 RDW 17.7 H Plt Count 23 L* MPV 8.3 Absolute Neuts (auto) 0.9 L Neutrophils % 24.6 L D Lymphocytes % 63.9 H Monocytes % 10.7 H Eosinophils % 0.2 Basophils % 0.6 Nucleated RBC % 1 H Platelet Comment Haptoglobin PT with INR INR PTT (Actin FS) Fibrinogen 383.0 Sodium 139 Potassium 4.0 Chloride 104 Carbon Dioxide 25 Anion Gap 10 BUN 18.6 H Creatinine 1.3 Est GFR (CKD-EPI)AfAm 84.86 Est GFR (CKD-EPI)NonAf 73.22 Random Glucose 113 H Uric Acid Calcium 8.3 L Phosphorus 3.9 Magnesium 2.2 Transferrin Total Bilirubin 0.3 AST 41 H ALT 55 Alkaline Phosphatase 101 LD Total Total Protein 6.2 L Albumin 3.3 L IgG IgA IgM HIV 1&2 Ag/Ab, 4th Gen Current Medications Generic Name Dose Route Start Last Admin Trade Name Freq PRN Reason Stop Dose Admin Acetaminophen 650 mg 11/09/19 22:18 Tylenol - PO Q6H PRN Fever Or Pain Allopurinol 300 mg 11/10/19 08:30 11/11/19 10:43 Zyloprim - PO 300 mg DAILY DORA Administration Sodium Chloride 1,000 mls @ 75 mls/hr 11/10/19 00:45 11/11/19 09:41 Normal Saline - IV 75 mls/hr ASDIR DORA Administration Sodium Chloride 1,000 mls @ 75 mls/hr 11/10/19 02:00 11/11/19 09:44 Normal Saline - IV Not Given ASDIR DORA Doxycycline Hyclate 100 mg/ 100 mls @ 100 mls/hr 11/10/19 10:00 11/11/19 09:40 Dextrose IVPB 100 mls/hr BID DORA Administration Ceftriaxone Sodium 2 gm/ 50 mls @ 100 mls/hr 11/10/19 10:00 11/11/19 09:41 Dextrose IVPB 100 mls/hr DAILY DORA Administration ASSESSMENT AND PLAN: 29 year old male with no significant PMH presents with 2 week history of increasing lethargy, night sweats, chills, weight loss, fevers, found to have Anemia and Thrombocytopenia. 1. Pancytopenia - Neutropenia/Anemia/Thrombocytopenia ?Infective etiology vs underlying malignancy CXR - no acute findings CT A/P - Splenomegaly LDH/Uric Acid elevated - Peripheral smear seen by Hematology - no blast proliferation as per Dr. Williamson. Monitor H.H and transfuse for Hb < 7.0 Monitor Platelets and transfuse for Platelets < 20,000 as per Oncology. Peripheral Flow Cytometry/FISH (can only be sent on Tuesday11/12/19) Allopurinol started for elevated Uric Acid. Mild elevation in LFTs, will monitor. Tick-Borne illness work-up sent despite negative history of tick exposure. HIV negative. Stool for Cdiff and Cx if any further diarrhea. Further infective work-up as per ID. Empiric Ceftriaxone/Doxycycline as per ID - given development of neutropenia, will change Ceftriaxone to Cefepime (discussed with Dr. Gagnon). Further oncological work-up as per Oncology. DVT Px - SCDs. Visit type - Emergency Visit Emergency Visit: Yes ED Registration Date: 11/09/19 Care time: The patient presented to the Emergency Department on the above date and was hospitalized for further evaluation of their emergent condition. - New Patient This patient is new to me today: No - Critical Care Critical Care patient: No - Discharge Referral Referred to [facility] Med P.C.: No
[2019-11-11] MEDS ORDERED: CEFEPIME HCL/D5W 1 GM/50 ML BAG IVPB SCH (18:00)
[2019-11-11] MEDS ORDERED: CEFEPIME 1 GM in DEXTROSE 5%-WATER 100 ML IVPB SCH (18:00)
[2019-11-11] MEDS ORDERED: CEFEPIME HCL 1 GM VIAL (RESTRICTED TO ID) ONE (18:06)
--- NOTE | 2019-11-11 22:35 | PN ---
Progress Note, Physician History of Present Illness: AWAKE, ALERT IN BED NO COMPLAINTS NO F/C/NS - Current Medication List Current Medications: Active Medications Acetaminophen (Tylenol -) 650 mg PO Q6H PRN PRN Reason: Fever Or Pain Allopurinol (Zyloprim -) 300 mg PO DAILY DORA Last Admin: 11/11/19 10:43 Dose: 300 mg Documented by: Sodium Chloride (Normal Saline -) 1,000 mls @ 75 mls/hr IV ASDIR DORA Last Admin: 11/11/19 21:44 Dose: 75 mls/hr Documented by: Sodium Chloride (Normal Saline -) 1,000 mls @ 75 mls/hr IV ASDIR DORA Last Admin: 11/11/19 09:44 Dose: Not Given Documented by: Doxycycline Hyclate 100 mg/ (Dextrose) 100 mls @ 100 mls/hr IVPB BID DORA Last Admin: 11/11/19 21:20 Dose: 100 mls/hr Documented by: Cefepime HCl (Maxipime 1 Gm Premix Ivpb) 1 gm in 50 mls @ 100 mls/hr IVPB Q8H- IV DORA; Protocol - Objective Vital Signs: Vital Signs Temperature 99.3 F 11/11/19 19:23 Pulse Rate 91 H 11/11/19 19:23 Respiratory Rate 18 11/11/19 21:00 Blood Pressure 135/95 11/11/19 19:23 O2 Sat by Pulse Oximetry (%) 98 11/11/19 21:00 Constitutional: Yes: No Distress Eyes: Yes: Conjunctiva Clear Cardiovascular: Yes: Regular Rate and Rhythm, S1, S2 Respiratory: Yes: CTA Bilaterally Gastrointestinal: Yes: Normal Bowel Sounds, Soft, Splenomegaly Edema: No Labs: CBC, BMP 11/11/19 13:02 11/11/19 13:02 INR, PTT INR 1.13 (0.83-1.09) H 11/11/19 09:15 Fibrinogen 383.0 mg/dL (238-498) 11/11/19 09:15 Assessment/Plan PANCYTOPENIA/ NEUTROPENIA PROBABLE ACUTE LEUKEMIA TICK-BORNE/ VIRAL ILLNESS LESS LIKELY AWAIT SEROLOGIES CONTINUE EMPIRIC DOXYCYCLINE SUBSTITUTE CEFEPIME IN LIGHT OF NEUTROPENIA
[2019-11-12] MEDS ORDERED: CEFEPIME HCL 1 GM VIAL (RESTRICTED TO ID) ONE ×2 (00:29→09:09)
[2019-11-12] MEDS ORDERED: DEXTROSE 5%-WATER - 50 ML IVPB ONE ×2 (00:29→09:09)
[2019-11-12] MEDS: SODIUM CHLORIDE 1,000 ML IV SCH ×3 (00:50→09:14)
[2019-11-12] MEDS: CEFEPIME 1 GM in DEXTROSE 5%-WATER - 50 ML IVPB SCH ×2 (01:02→09:14)
[2019-11-12] MEDS ORDERED: DEXTROSE 5%-WATER 100 ML IVPB ONE (09:09)
[2019-11-12] MEDS ORDERED: DOXYCYCLINE HYCLATE 100 MG VIAL ONE (09:09)
[2019-11-12] MEDS: DOXYCYCLINE INJECTION 100 MG in DEXTROSE 5%-WATER 100 ML IVPB SCH (09:13)
[2019-11-12] MEDS: ALLOPURINOL 300 MG TABLET (FP) PO SCH (09:14)
[2019-11-12] MEDS ORDERED: SODIUM CHLORIDE 1,000 ML IV SCH (09:54)
--- NOTE | 2019-11-12 10:14 | EKG ---
Test Reason : Blood Pressure : / mmHG Vent. Rate : 083 BPM Atrial Rate : 083 BPM P-R Int : 160 ms QRS Dur : 086 ms QT Int : 386 ms P-R-T Axes : 049 022 011 degrees QTc Int : 453 ms POOR DATA QUALITY, INTERPRETATION MAY BE ADVERSELY AFFECTED NORMAL SINUS RHYTHM NORMAL ECG NO PREVIOUS ECGS AVAILABLE Confirmed by Wenceslao Ludwig ([id number]) on 11/12/2019 10:14:28 AM Referred By: Confirmed By:Wenceslao Ludwig
--- NOTE | 2019-11-12 10:15 | CONS ---
INFECTIOUS DISEASE CONSULTATION DATE OF CONSULTATION: DATE OF DICTATION: 11/11/2019 HISTORY: The patient is a 29-year-old male who is evaluated for possible tick-related illness. He presented to an urgent care center with a 1 to 2-week history of fevers, chills, night sweats, anorexia and a 40-pound weight loss over 2 months. He was found to be pancytopenic. He was referred to the emergency room at [facility]. He was noted to be leukopenic and pancytopenic. An initial evaluation was done. A CAT scan of the abdomen and pelvis showed an enlarged spleen. He was seen in consultation by Hematology whose impression was that he may have an acute leukemia due to presence of blasts on the peripheral smear. Patient denies any recent viral illness. He denies any respiratory tract symptoms. No cough, sputum production or hemoptysis. No known contact with coronavirus patients. He states he tested HIV negative in the past. He denies any tick-related illnesses. No known tick bites, rash. He lives in the community, has a pet cat, but denies any tick exposure. PAST MEDICAL HISTORY: Negative. ALLERGIES: No known allergies. MEDICATIONS: None. SOCIAL HISTORY: He resides in the community with his family members. They are all well. 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 He is a nonsmoker, nondrinker. No recent travel. SYSTEMS REVIEW: Neurologic: No loss of consciousness, seizure activity or focal weakness. Cardiac: Negative chest pain or palpitations. Respiratory: Negative cough or sputum production. Gastrointestinal: Negative vomiting or diarrhea. Genitourinary: Negative for urinary tract infection. LABORATORY DATA: White count 4.6, neutrophils 19, bands 5, lymphocytes 62, monocytes 12, blasts 5, hematocrit 22.7, platelets 21. Creatinine 1.3. Urine analysis negative. HIV test negative. Coronavirus negative. PHYSICAL EXAMINATION: General: He is awake and alert. He is pale, but not acutely toxic appearing. Vital Signs: Temperature 98.8, blood pressure 120/77, pulse 98 regular, respirations 20 per minute. HEENT: Sclerae are anicteric. Heart: Sounds S1, S2. Lungs: Clear. Abdomen: Soft. Positive spleen tip palpable. Extremities: Negative for edema. Skin: No rashes noted. IMPRESSION: Pancytopenia with blasts on peripheral smear, suspect acute leukemia. Tick-related or viral illness less likely. Case discussed with hospitalist. Obtain serologies for tick-related illnesses including Lyme titer, anaplasma titer, Babesia titer and peripheral smear, Babesia PCR. Empiric antibiotic coverage with doxycycline and ceftriaxone. Hematology followup. Thank you for the kind referral. MANUEL AMARAL M.D. [id number]
[2019-11-12 11:12] LABS: POTASSIUM 3.7 mmol/L (3.5-5.1)
[2019-11-12 11:19] LABS: ALBUMIN 3.4 g/dl (3.4-5.0); BILIRUBIN,TOTAL 0.8 mg/dL (0.2-1); BLOOD UREA NITROGEN 15.9 mg/dL (7-18); CALCIUM 8.7 mg/dL (8.5-10.1); CREATININE 1.2 mg/dL (0.55-1.3); TOT PROT 6.7 g/dl (6.4-8.2); URIC ACID 5.8 mg/dL (2.6-7.2)
[2019-11-12 11:47] LABS: BASO % 0.7 % (0-2.0); EOS % 0.3 % (0-4.5); HEMATOCRIT 24.4 % (35.4-49); LYMPH % 57.8 % (8-40); MCH 31.1 pg (25.7-33.7); MEAN CELL VOLUME 94.3 fl (80-96); MEAN PLT VOLUME 7.4 fl (7.5-11.1); MONO % 21.3 % (3.8-10.2); NEUT % 19.9 % (42.8-82.8); RBC 2.58 M/mm3 (4.00-5.60); RDW 17.8 % (11.9-15.9); WHITE BLOOD COUNT 6.3 K/mm3 (4.0-10.0)
[2019-11-12 11:53] VITALS: BP 132/76; PULSE 95; TEMP 98.2
[2019-11-12 11:55] LABS: PLATELET COUNT 21 K/MM3 (134-434)
[2019-11-12 12:22] LABS: ANISOCYTOSIS 2+; CORRECTED WBC 5.63 K/mm3; MACROCYTOSIS 1+; PLATELET ESTIMATE DECREASED
[2019-11-12 12:49] LABS: ANISOCYTOSIS 2+; CORRECTED WBC 3.07 K/mm3; MACROCYTOSIS 1+; PLATELET ESTIMATE DECREASED
--- NOTE | 2019-11-12 14:56 | DS ---
Physical Exam: SUBJECTIVE: Patient seen and examined OBJECTIVE: Vital Signs Period Temp Pulse Resp BP Sys/Price Pulse Ox Last 24 Hr 98.2 F-99.3 F 76-95 18-20 129-135/66-95 98-99 PHYSICAL EXAM GENERAL: The patient is awake, alert, and fully oriented, in no acute distress. HEAD: Normal with no signs of trauma. EYES: PERRL, extraocular movements intact, sclera anicteric, conjunctiva clear. ENT: Ears normal, nares patent, oropharynx clear without exudates, moist mucous membranes. NECK: Trachea midline, full range of motion, supple. LUNGS: Breath sounds equal, clear to auscultation bilaterally, no wheezes, no crackles, no accessory muscle use. HEART: Regular rate and rhythm, S1, S2 without murmur, rub or gallop. ABDOMEN: Soft, nontender, nondistended, normoactive bowel sounds, no guarding, no rebound, no hepatosplenomegaly, no masses. EXTREMITIES: 2+ pulses, warm, well-perfused, no edema. NEUROLOGICAL: Cranial nerves II through XII grossly intact. Normal speech, gait not observed. PSYCH: Normal mood, normal affect. SKIN: Warm, dry, normal turgor, no rashes or lesions noted. LABS Laboratory Results - last 24 hr 11/09/19 11/10/19 11/11/19 15:00 06:30 09:15 WBC Corrected WBC (auto) RBC Hgb Hct MCV MCH MCHC RDW Plt Count MPV Absolute Neuts (auto) Neutrophils % Neutrophils % (Manual) Band Neutrophils % Lymphocytes % Lymphocytes % (Manual) Monocytes % Monocytes % (Manual) Eosinophils % Eosinophils % (Manual) Basophils % Basophils % (Manual) Myelocytes % (Man) Promyelocytes % (Man) Blast Cells % (Manual) Nucleated RBC % Metamyelocytes Hypochromia Platelet Estimate Polychromasia Poikilocytosis Anisocytosis Microcytosis Macrocytosis Sodium Potassium Chloride Carbon Dioxide Anion Gap BUN Creatinine Est GFR (CKD-EPI)AfAm Est GFR (CKD-EPI)NonAf Random Glucose Uric Acid 6.7 Calcium Phosphorus Magnesium Ferritin 867.3 H Total Bilirubin AST ALT Alkaline Phosphatase LD Total 964 H Total Protein Albumin Rheumatoid Arth Biomark < 10.0 COVID-19 (RAGHAVENDRA) Not detected Blood Type Antibody Screen 11/11/19 11/11/19 11/12/19 13:02 13:02 09:25 WBC Corrected WBC (auto) 3.07 RBC Hgb Hct MCV MCH MCHC RDW Plt Count MPV Absolute Neuts (auto) Neutrophils % Neutrophils % (Manual) 24.2 L D Band Neutrophils % 5.3 Lymphocytes % Lymphocytes % (Manual) 47.4 H Monocytes % Monocytes % (Manual) 1 L Eosinophils % Eosinophils % (Manual) 0.0 Basophils % Basophils % (Manual) 0.0 Myelocytes % (Man) 2 D Promyelocytes % (Man) 0 Blast Cells % (Manual) 16 H D Nucleated RBC % 14 H* Metamyelocytes 2 D Hypochromia 1+ Platelet Estimate Decreased Polychromasia 1+ Poikilocytosis 0 Anisocytosis 2+ Microcytosis 2+ Macrocytosis 1+ Sodium 139 138 Potassium 4.0 3.7 Chloride 104 103 Carbon Dioxide 25 26 Anion Gap 10 9 BUN 18.6 H 15.9 Creatinine 1.3 1.2 Est GFR (CKD-EPI)AfAm 84.86 93.48 Est GFR (CKD-EPI)NonAf 73.22 80.66 Random Glucose 113 H 100 Uric Acid 5.8 Calcium 8.3 L 8.7 Phosphorus 3.9 Magnesium 2.2 Ferritin 863.1 H Total Bilirubin 0.3 0.8 AST 41 H 37 ALT 55 56 Alkaline Phosphatase 101 108 LD Total 877 H Total Protein 6.2 L 6.7 Albumin 3.3 L 3.4 Rheumatoid Arth Biomark COVID-19 (RAGHAVENDRA) Blood Type Antibody Screen 11/12/19 11/12/19 09:25 10:32 WBC 6.3 Corrected WBC (auto) 5.63 RBC 2.58 L Hgb 8.0 L Hct 24.4 L MCV 94.3 MCH 31.1 MCHC 33.0 RDW 17.8 H Plt Count 21 L* MPV 7.4 L D Absolute Neuts (auto) 1.3 L Neutrophils % 19.9 L Neutrophils % (Manual) 9.1 L D Band Neutrophils % 4.1 Lymphocytes % 57.8 H Lymphocytes % (Manual) 51.5 H Monocytes % 21.3 H D Monocytes % (Manual) 3 L D Eosinophils % 0.3 Eosinophils % (Manual) 0.0 Basophils % 0.7 Basophils % (Manual) 1.0 D Myelocytes % (Man) 1 D Promyelocytes % (Man) 0 Blast Cells % (Manual) 10 H D Nucleated RBC % 12 H* Metamyelocytes 8 H D Hypochromia 0 Platelet Estimate Decreased Polychromasia 1+ Poikilocytosis 0 Anisocytosis 2+ Microcytosis 2+ Macrocytosis 1+ Sodium Potassium Chloride Carbon Dioxide Anion Gap BUN Creatinine Est GFR (CKD-EPI)AfAm Est GFR (CKD-EPI)NonAf Random Glucose Uric Acid Calcium Phosphorus Magnesium Ferritin Total Bilirubin AST ALT Alkaline Phosphatase LD Total Total Protein Albumin Rheumatoid Arth Biomark COVID-19 (RAGHAVENDRA) Blood Type B POSITIVE Antibody Screen Negative HOSPITAL COURSE: Date of Admission:11/09/19 Date of Discharge: 11/12/19 29 year old male with no significant PMH presents with 2 week history of increasing lethargy, night sweats, chills, weight loss, fevers, found to have Anemia and Thrombocytopenia. 1. Pancytopenia - Neutropenia/Anemia/Thrombocytopenia ?Infective etiology vs underlying malignancy CXR - no acute findings CT A/P - Splenomegaly LDH/Uric Acid elevated - Peripheral smear seen by Hematology - no blast proliferation as per Dr. Williamson. Monitor H.H and transfuse for Hb < 7.0 Monitor Platelets and transfuse for Platelets < 20,000 as per Oncology. Peripheral Flow Cytometry/FISH (can only be sent on Tuesday11/12/19) Allopurinol started for elevated Uric Acid. Mild elevation in LFTs, will monitor. Tick-Borne illness work-up sent despite negative history of tick exposure. HIV negative. Stool for Cdiff and Cx if any further diarrhea. Further infective work-up as per ID. Empiric Ceftriaxone/Doxycycline as per ID - given development of neutropenia, will change Ceftriaxone to Cefepime (discussed with Dr. Gagnon). Further oncological work-up as per Oncology. DVT Px - SCDs. Minutes to complete discharge: 40 Discharge Summary Problems reviewed: Yes Reason For Visit: ANEMIA,LEUKOPENIA,THROMBOCYTOPENIA Condition: Stable - Instructions Disposition: TRANSFER ACUTE CARE/OTHER HOSP - Discharge Referral Referred to [facility] Med [facility].C[facility] No ATTENDING PHYSICIAN STATEMENT I saw and evaluated the patient. I reviewed the resident's note and discussed the case with the resident. I agree with the resident's findings and plan as documented. SUBJECTIVE: OBJECTIVE: ASSESSMENT AND PLAN:
[2019-11-12 15:07] LABS: E.chaff HME IgG Negative (Neg:<1:64)
[2019-11-12 15:19] LABS: CORRECTED WBC 6.61 K/mm3
--- NOTE | 2019-11-12 15:25 | PN ---
Teaching Attending Note Name of Resident: Chele Hadley ATTENDING PHYSICIAN STATEMENT I saw and evaluated the patient. I reviewed the resident's note and discussed the case with the resident. I agree with the resident's findings and plan as documented. SUBJECTIVE: Feeling well, no further diarrhea. No melena/hematochezia. No further fevers. Sweats overnight. No cough/sputum/hemoptysis. No abdominal pain/dysuria/nausea/vomiting/diarrhea. No rash. No ecchymoses. OBJECTIVE: Tmax 99.7. Hemodynamically Stable. Last Vital Signs Temp Pulse Resp BP Pulse Ox 98.2 F 95 H 20 132/76 99 11/12/19 10:00 11/12/19 10:00 11/12/19 10:00 11/12/19 10:11/12/19 10:00 Heart - S1, S2, RRR Lungs - clear to auscultation Abdomen - Soft, non-tender. Bowel Sounds normal. Extremities - no edema, no calf tenderness Neuro - AAO x 3. Tone/Power normal all extremities. Laboratory Results - last 24 hr 11/09/19 11/10/19 11/10/19 15:00 06:30 08:43 WBC Corrected WBC (auto) RBC Hgb Hct MCV MCH MCHC RDW Plt Count MPV Absolute Neuts (auto) Total Counted Neutrophils % Neutrophils % (Manual) Band Neutrophils % Lymphocytes % Lymphocytes % (Manual) Monocytes % Monocytes % (Manual) Eosinophils % Eosinophils % (Manual) Basophils % Basophils % (Manual) Myelocytes % (Man) Promyelocytes % (Man) Blast Cells % (Manual) Nucleated RBC % Metamyelocytes Hypochromia Platelet Estimate Polychromasia Poikilocytosis Anisocytosis Microcytosis Macrocytosis Sodium Potassium Chloride Carbon Dioxide Anion Gap BUN Creatinine Est GFR (CKD-EPI)AfAm Est GFR (CKD-EPI)NonAf Random Glucose Uric Acid Calcium Phosphorus Magnesium Ferritin Total Bilirubin AST ALT Alkaline Phosphatase LD Total Total Protein Albumin Rheumatoid Arth Biomark < 10.0 COVID-19 (RAGHAVENDRA) Not detected Ehrlichia IgG Antibody Negative Ehrlichia IgM Antibody Negative E. chaffeensis IgG Ab Negative E. chaffeensis IgM Ab Negative Blood Type Antibody Screen 11/10/19 11/11/19 11/11/19 21:45 09:15 13:02 WBC 3.5 L Corrected WBC (auto) 6.61 3.07 RBC 2.35 L Hgb 7.3 L Hct 22.1 L MCV 94.1 MCH 30.9 MCHC 32.8 RDW 17.7 H Plt Count 23 L* MPV 8.3 Absolute Neuts (auto) 0.9 L Total Counted 100 Neutrophils % 24.6 L D Neutrophils % (Manual) 9.1 L D 24.2 L D Band Neutrophils % 4.0 5.3 Lymphocytes % 63.9 H Lymphocytes % (Manual) 51.5 H 47.4 H Monocytes % 10.7 H Monocytes % (Manual) 3 L D 1 L Eosinophils % 0.2 Eosinophils % (Manual) 0.0 Basophils % 0.6 Basophils % (Manual) 1.0 D 0.0 Myelocytes % (Man) 1 D 2 D Promyelocytes % (Man) 0 Blast Cells % (Manual) 10 H D 16 H D Nucleated RBC % 12 H* 14 H* Metamyelocytes 8 H D 2 D Hypochromia 1+ Platelet Estimate Decreased Polychromasia 1+ Poikilocytosis 0 Anisocytosis 2+ Microcytosis 2+ Macrocytosis 1+ Sodium Potassium Chloride Carbon Dioxide Anion Gap BUN Creatinine Est GFR (CKD-EPI)AfAm Est GFR (CKD-EPI)NonAf Random Glucose Uric Acid 6.7 Calcium Phosphorus Magnesium Ferritin 867.3 H Total Bilirubin AST ALT Alkaline Phosphatase LD Total 964 H Total Protein Albumin Rheumatoid Arth Biomark COVID-19 (RAGHAVENDRA) Ehrlichia IgG Antibody Ehrlichia IgM Antibody E. chaffeensis IgG Ab E. chaffeensis IgM Ab Blood Type Antibody Screen 11/11/19 11/12/19 11/12/19 13:02 09:25 09:25 WBC Corrected WBC (auto) RBC Hgb Hct MCV MCH MCHC RDW Plt Count MPV Absolute Neuts (auto) Total Counted Neutrophils % Neutrophils % (Manual) Band Neutrophils % Lymphocytes % Lymphocytes % (Manual) Monocytes % Monocytes % (Manual) Eosinophils % Eosinophils % (Manual) Basophils % Basophils % (Manual) Myelocytes % (Man) Promyelocytes % (Man) Blast Cells % (Manual) Nucleated RBC % Metamyelocytes Hypochromia Platelet Estimate Polychromasia Poikilocytosis Anisocytosis Microcytosis Macrocytosis Sodium 139 138 Potassium 4.0 3.7 Chloride 104 103 Carbon Dioxide 25 26 Anion Gap 10 9 BUN 18.6 H 15.9 Creatinine 1.3 1.2 Est GFR (CKD-EPI)AfAm 84.86 93.48 Est GFR (CKD-EPI)NonAf 73.22 80.66 Random Glucose 113 H 100 Uric Acid 5.8 Calcium 8.3 L 8.7 Phosphorus 3.9 Magnesium 2.2 Ferritin 863.1 H Total Bilirubin 0.3 0.8 AST 41 H 37 ALT 55 56 Alkaline Phosphatase 101 108 LD Total 877 H Total Protein 6.2 L 6.7 Albumin 3.3 L 3.4 Rheumatoid Arth Biomark COVID-19 (RAGHAVENDRA) Ehrlichia IgG Antibody Ehrlichia IgM Antibody E. chaffeensis IgG Ab E. chaffeensis IgM Ab Blood Type B POSITIVE Antibody Screen Negative 11/12/19 10:32 WBC 6.3 Corrected WBC (auto) 5.63 RBC 2.58 L Hgb 8.0 L Hct 24.4 L MCV 94.3 MCH 31.1 MCHC 33.0 RDW 17.8 H Plt Count 21 L* MPV 7.4 L D Absolute Neuts (auto) 1.3 L Total Counted Neutrophils % 19.9 L Neutrophils % (Manual) 9.1 L D Band Neutrophils % 4.1 Lymphocytes % 57.8 H Lymphocytes % (Manual) 51.5 H Monocytes % 21.3 H D Monocytes % (Manual) 3 L D Eosinophils % 0.3 Eosinophils % (Manual) 0.0 Basophils % 0.7 Basophils % (Manual) 1.0 D Myelocytes % (Man) 1 D Promyelocytes % (Man) 0 Blast Cells % (Manual) 10 H D Nucleated RBC % 12 H* Metamyelocytes 8 H D Hypochromia 0 Platelet Estimate Decreased Polychromasia 1+ Poikilocytosis 0 Anisocytosis 2+ Microcytosis 2+ Macrocytosis 1+ Sodium Potassium Chloride Carbon Dioxide Anion Gap BUN Creatinine Est GFR (CKD-EPI)AfAm Est GFR (CKD-EPI)NonAf Random Glucose Uric Acid Calcium Phosphorus Magnesium Ferritin Total Bilirubin AST ALT Alkaline Phosphatase LD Total Total Protein Albumin Rheumatoid Arth Biomark COVID-19 (RAGHAVENDRA) Ehrlichia IgG Antibody Ehrlichia IgM Antibody E. chaffeensis IgG Ab E. chaffeensis IgM Ab Blood Type Antibody Screen ASSESSMENT AND PLAN: 29 year old male with no significant PMH presents with 2 week history of increasing lethargy, night sweats, chills, weight loss, fevers, found to have Anemia and Thrombocytopenia. 1. Pancytopenia - Neutropenia/Anemia/Thrombocytopenia ?Infective etiology vs underlying malignancy CXR - no acute findings CT A/P - Splenomegaly LDH/Uric Acid elevated - Peripheral smear seen by Hematology - 5% blasts as per Dr. Williamson. Monitor H.H and transfuse for Hb < 7.0 Monitor Platelets and transfuse for Platelets < 20,000 as per Oncology. Peripheral Flow Cytometry/FISH (sent on Tuesday11/12/19) Allopurinol started for elevated Uric Acid. Mild elevation in LFTs, resolved Tick-Borne illness work-up sent despite negative history of tick exposure. HIV negative. Stool for Cdiff and Cx if any further diarrhea. Further infective work-up as per ID. Empiric Cefepime/Doxycycline as per ID given neutropenia. Further oncological work-up as per Oncology. DVT Px - SCDs. Discussed with Oncology at [facility] who has accepted Mr. Chan for transfer for further investigations and appropriate management.
[2019-11-12 17:06] LABS: BABESIA MICROTI ANTIBODY IGG <1:10 (Neg:<1:10); BABESIA MICROTI ANTIBODY IGM <1:10 (Neg:<1:10)
--- NOTE | 2019-11-13 02:49 | PN.HO ---
Progress Note (short form) - Note Progress Note: PAtient seen and examined Feels improved Last Vital Signs Temp Pulse Resp BP Pulse Ox 98.2 F 82 17 112/72 98 11/10/19 07:54 11/10/19 07:54 11/10/19 07:54 11/10/19 07:54 11/10/19 07:54 Last Vital Signs Temp Pulse Resp BP Pulse Ox 98.0 F 88 18 130/70 96 11/11/19 09:00 11/11/19 09:00 11/11/19 09:00 11/11/19 09:00 11/11/19 09:00 AFVSS Cor: RSR, No murmurs, No gallops Lungs: Clear to P&A Abd: Soft, Normal bowel sounds, No organomegaly Ext:No significant edema Labs/Meds reviewed A/P 29 M with no PMH walked to the ED after a low blood cell count result from [facility] urgent care. He presents with 2 weeks of flu like symptoms fatigue, sweating, low appetite and 2 months of weight loss over 40 lbs. Noted fever this am only He denies SOB, chest pain, stomach pain, N/V/D, vision change, bleeding. He denies exposure to COVID, TB, recent travel history to endemic region. Peripheral smear ---increased lymphocytes, atypical ? blasts 5%, decreased neut rophils R/O Acute leukemia R/o viral illness/sepsis Peripheral smear, clinical picture suggestive of acute leukemia check peripheral blood flowcytometry PT/PTT/fibrinogen--nl LDH -1200s/uric acid 8.1 IV hydration allopurinol Transfuse monodonor platelets if bleeding or < 10-20,000 Transfuse PRBCs for Hgb <7 Empiric antibiotics for neutopenic fever covid/hiv neg. will transfer to [facility] for further management. Discussed with Dr. Guzman
[2019-11-13 17:08] LABS: FREE KAPPA,SERUM 12.7 mg/L (3.3-19.4)
--- NOTE | 2019-11-14 17:37 | PATH ---
Surgical Pathology Report Patient Name: MANUEL PALACIOS [facility]. Rec. #: [id number] /Age/Gender: 1990 (Age: 29) / M Account: [id number] Location: [address] [place] [address]/[facility] Taken: 11/12/2019 Received: 11/12/2019 Reported: 11/14/2019 Physicians: Teri Acosta M.D. Specimen(s) Received PERIPHERAL BLOOD Clinical History Splenomegaly, pancytopenia/Blasts 5%?? Rule out leukemia, rule out lymphoproliferative disorder Final Diagnosis COMPREHENSIVE FLOW PANEL performed and interpreted at [place], [place] ([id number]) shows the following: INTERPRETATION: PRECURSOR B-CELL POPULATION (14%) CONSISTENT WITH .B-LYMPHOBLASTIC LEUKEMIA/LYMPHOMA. COMMENT: Correlate with bone marrow morphologic findings, any other sites of involvement and FISH analysis, cytogenetic findings for further characterization. PHENOTYPE: TdT+ lymphoid blasts comprise 14% of analyzed white blood cells, co-expressing HLA-DR, CD34, CD10 (bright), B-cell markers CD19, cCD79a, sCD22, cCD22, and are negative for CD20 and cCD3, subset (2%) showing dim expression of myeloid markers CD13, CD33 and MPO. Maturing myeloid forms and mature lymphocytes are decreased. Additional Tests: Cytogenetics, FISH, Molecular [facility] for additional [facility]. Flows cytometry findings were discussed with Dr. Acosta on 11/14/2019. Electronically Signed Jairon Carvalho M.D. 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 The BCR/ABL1 t(9;22) translocation is detected. No evidence of deletion 7q or monosomy 7 is present. No evidence of a rearrangement of 11q23. Comments: Correlation with pending cytogenetics ([id number]) is recommended. Four multiplex probe stain procedures were performed. See [facility] report for additional details. Jairon Carvalho M.D. Addendum Reported: 11/20/2019 Addendum Diagnosis CYTOGENETIC KARYOTYPE ANALYSIS performed and interpreted at 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 The gains of chromosome 8 was not evident in this single cell. The remaining forty-nine cells showed a normal chromosome complement. Acute B-cell lymphoblastic leukemia with a (9;22) translocation is generally associated with a poor prognosis. Please correlate with clinical presentation and other diagnostic modalities. Analysis was performed on cells from an unstimulated culture and a culture that was stimulated with lymphoid mitogens. See [facility] report for additional details. Jairon Carvalho M.D. Addendum Reported: 11/20/2019 Addendum Diagnosis PML/SANDRA Gene Rearrangement performed and interpreted at [facility] laboratory, [facility] ([id number]) shows the following: RESULTS: Body Site: Peripheral Blood PML-SANDRA t(15;17) Not Detected INTERPRETATION: The t(15;17) translocation results in the expression of a chimeric mRNA, PML-SANDRA; which is considered diagnostic for acute promyelocytic leukemia (APL). .Two major forms of this fusion transcript have been described, long and short. Identification of these fusion transcripts is essential in APL because it is closely correlated with responsiveness to treatment with all-trans retinoic acid or other specific therapy which substantially improves survival of patients with the disease. Presence of this abnormality in AML is associated with excellent outcome. . This assay is recommended for confirmation of diagnosis and for monitoring minimal residual disease (MRD) and predicting relapse. For monitoring MRD, we recommend monitoring trend rather than making conclusion based on one measurement. See [facility] report for additional details. Jairon Carvalho M.D. Gross Description Received are 2 green top tubes and 2 lavender top tubes of peripheral blood which are sent to [facility]. 11/12/2019 formerly [facility]11/12/2019
== END 2019-11-12 14:03 | disposition short-term general hospital (02) | DRG 813 ==
LOC: JER 13:18 → JERBED 17:08 → J6S 11-10 14:39
PROVIDERS: ADMIT Internal Medicine
DX: D69.6 Thrombocytopenia, unspecified (principal); D61.818 Other pancytopenia; C95.90 Leukemia, unspecified not having achieved remission; D64.9 Anemia, unspecified; E66.9 Obesity, unspecified; Z68.30 Body mass index [BMI] 30.0-30.9, adult
CPT/HCPCS: 36415; 71045-TC-FY; 74176-TC; 80053; 81003; 82607; 82728; 82746; 82784; 82930; 83010; 83540; 83550; 83615; 83735; 83883; 84100; 84439; 84443; 84466; 84550; 85025; 85044; 85384; 85610; 85730; 86038; 86140; 86431; 86618; 86666; 86753; 86850; 86880; 86900; 86901; 87040; 87086; 87207; 87389; 87476; 87798; 88300-TC; 93005; 93010; 99285-25; U0003